=== PATIENT | male | born 1945 | race Asian ===

== ENCOUNTER 2021-06-20 10:33 | Inpatient (IN) | payer BC, MEDICAID ==
[~2021-06-20] VITALS: Ht 167.6 cm; Wt 68.0 kg
[2021-06-20] MEDS ORDERED: methylPREDNISolone SOD SUCC 125 MG/2 ML VL IV ONE (11:15)
[2021-06-20 12:00] LABS: Albumin 2.6 g/dL (3.4-5.0); Calcium 7.4 mg/dL (8.5-10.1); Potassium 3.2 mmol/L (3.5-5.1)
[2021-06-20 12:04] LABS: BUN/Creatinine Ratio 15.6; Bilirubin, Total 1.3 mg/dL (0.2-1.0); Total Protein 5.5 g/dL (6.4-8.2)
[2021-06-20 12:08] LABS: Basophils # (auto) 0 10 ^3/uL (0-0.2); Basophils % (auto) 0.2 % (0.0-2.0); Eosinophils # (auto) 0 10 ^3/uL (0-0.8); Hematocrit 34.6 % (41.0-53.0); Hemoglobin 12.6 g/dL (13.5-17.5); Lymphocytes # (auto) 0.4 10 ^3/uL (0.4-5.4); Lymphocytes % (auto) 6.7 % (10.0-50.0); Mean Corpuscular Hemoglobin 31.6 pg (28.0-32.0); Mean Corpuscular Hgb Conc. 36.4 g/dL (32.0-36.0); Mean Corpuscular Volume 86.7 fL (80.0-100.0); Monocytes # (auto) 0.2 10 ^3/uL (0-1.3); Monocytes % (auto) 3.8 % (0.0-12.0); Neutrophils # (auto) 4.8 10 ^3/uL (1.6-8.6); Neutrophils % (auto) 89.3 % (37.0-80.0); Red Blood Cells 3.98 10^6/uL (4.5-5.90); Red Cell Distribution Width 12.9 % (11.8-14.3); White Blood Cell 5.3 10^3/uL (4.4-10.8)
[2021-06-20 12:09] LABS: CRP High Sensitivity 3.62 mg/dL (< 0.3)
[2021-06-20] MEDS ORDERED: SODIUM CHL 3% 500 ML IV ONE (12:30)
[2021-06-20] MEDS ORDERED: ZINC SULFATE 220mg CAP or TAB PO ONE (12:30)
[2021-06-20] MEDS ORDERED: ASCORBIC ACID 500 MG TAB PO ONE (12:30)
[2021-06-20] MEDS ORDERED: POTASSIUM CHL 20MEQ/100ML 100 ML IV ONE (12:30)
[2021-06-20] MEDS ORDERED: CHOLECALCIFEROL (VITD3) 2,000 UNIT CAP/TAB PO ONE (12:30)
[2021-06-20] MEDS ORDERED: MORPHINE SULFATE INJECTION 2 MG/ML SYRG IV PRN (14:15)
[2021-06-20] MEDS ORDERED: NITROGLYCERIN 0.4 MG SL TAB SL PRN (14:15)
[2021-06-20 15:03] LABS: Urine Bacteria NONE SEEN /hpf (None Seen); Urine Blood Negative /uL (Negative); Urine Specific Gravity 1.003 (1.001-1.035); Urine WBC <1 /hpf (0 - 3)
[2021-06-20] MEDS ORDERED: REMDESIVIR PER PHARMACY 0 ML IV SCH (15:45)
[2021-06-20] MEDS ORDERED: LACTULOSE 20Gm/30ML SOLN PO PRN (15:45)
[2021-06-20] MEDS ORDERED: ONDANSETRON HCL 4 MG/2 ML VIAL IV PRN (15:45)
[2021-06-20] MEDS: SODIUM CHLORIDE 0.9% 1,000 ML IV SCH (15:54)
[2021-06-20] MEDS: BUDESONIDE (INHALATION) 180 MCG IH IN SCH (18:10)
[2021-06-20] MEDS: metroNIDAZOLE 500 MG TAB PO SCH (22:24)
[2021-06-20] MEDS: ENOXAPARIN SOD 40 MG/0.4 ML SYRINGE SC SCH (22:25)
[2021-06-20] MEDS: DOXYCYCLINE 100 MG TAB/CAP PO SCH (22:25)
[2021-06-21] VITALS (8 sets, daily range): BP systolic 121–143; BP diastolic 69–83
[2021-06-21] MEDS: metroNIDAZOLE 500 MG TAB PO SCH ×3 (05:32→21:50)
[2021-06-21] MEDS: SODIUM CHLORIDE 0.9% 1,000 ML IV SCH (06:37)
[2021-06-21 08:00] LABS: Basophils # (auto) 0 10 ^3/uL (0-0.2); Basophils % (auto) 0.2 % (0.0-2.0); Eosinophils # (auto) 0 10 ^3/uL (0-0.8); Hematocrit 37.2 % (41.0-53.0); Hemoglobin 13.5 g/dL (13.5-17.5); Lymphocytes # (auto) 0.4 10 ^3/uL (0.4-5.4); Mean Corpuscular Hemoglobin 31.3 pg (28.0-32.0); Mean Corpuscular Hgb Conc. 36.2 g/dL (32.0-36.0); Mean Corpuscular Volume 86.6 fL (80.0-100.0); Monocytes # (auto) 0.4 10 ^3/uL (0-1.3); Monocytes % (auto) 6.5 % (0.0-12.0); Neutrophils # (auto) 4.8 10 ^3/uL (1.6-8.6); Neutrophils % (auto) 86.3 % (37.0-80.0); Nucleated Red Blood Cells % 0.2 %; Red Cell Distribution Width 12.9 % (11.8-14.3); White Blood Cell 5.6 10^3/uL (4.4-10.8)
[2021-06-21 08:05] LABS: Potassium 3.4 mmol/L (3.5-5.1)
[2021-06-21 08:15] LABS: Albumin 2.5 g/dL (3.4-5.0); BUN/Creatinine Ratio 15.8; Bilirubin, Total 1.2 mg/dL (0.2-1.0); Calcium 7.1 mg/dL (8.5-10.1); Total Protein 5.6 g/dL (6.4-8.2)
[2021-06-21] MEDS: ZINC SULFATE 220mg CAP or TAB PO SCH (08:54)
[2021-06-21] MEDS: cefTRIAXone 1GM/50ML D5W 50 ML IV SCH (08:54)
[2021-06-21] MEDS: DOXYCYCLINE 100 MG TAB/CAP PO SCH ×2 (08:54→21:50)
[2021-06-21] MEDS: DexAMETHasone SOD PHOS 10MG/1ML VIAL INJ IV SCH (08:54)
[2021-06-21] MEDS: ASCORBIC ACID 1,000 MG TAB PO SCH (08:54)
[2021-06-21] MEDS: CHOLECALCIFEROL (VITD3) 2,000 UNIT CAP/TAB PO SCH (08:55)
[2021-06-21] MEDS: ENOXAPARIN SOD 40 MG/0.4 ML SYRINGE SC SCH ×2 (08:55→22:05)
[2021-06-21] MEDS ORDERED: POTASSIUM CHL 20 Meq TABLET PO ONE (09:00)
[2021-06-21] MEDS ORDERED: FUROSEMIDE 40 MG/4 ML VIAL IV ONE (09:00)
[2021-06-21] MEDS ORDERED: REMDESIVIR 200 MG in NS 210ml LOADING DOSE ADULT IV ONE (10:00)
[2021-06-21] MEDS: BUDESONIDE (INHALATION) 180 MCG IH IN SCH ×2 (10:16→20:24)
[2021-06-21] MEDS ORDERED: DEXTROSE (50%) 50ML SYRG IV PRN (15:15)
[2021-06-21] MEDS: ACCU-CHEK COMFORT CURVE STRIP VI SCH ×2 (16:10→22:05)
[2021-06-21] MEDS: InsuLIN REG 1unit/0.01ml Soln (100units/ml) SC SCH ×2 (16:40→21:59)
[2021-06-21] MEDS: FUROSEMIDE 20 MG/2 ML VIAL IV SCH (17:17)
[2021-06-21] MEDS: POTASSIUM CHL 10 Meq TABLET PO SCH (21:49)
[2021-06-22 05:05] VITALS: BP 137/80
[2021-06-22 06:05] LABS: Basophils # (auto) 0 10 ^3/uL (0-0.2); Basophils % (auto) 0.1 % (0.0-2.0); Eosinophils # (auto) 0 10 ^3/uL (0-0.8); Hematocrit 37.5 % (41.0-53.0); Hemoglobin 13.6 g/dL (13.5-17.5); Lymphocytes # (auto) 0.4 10 ^3/uL (0.4-5.4); Lymphocytes % (auto) 3.8 % (10.0-50.0); Mean Corpuscular Hemoglobin 31.4 pg (28.0-32.0); Mean Corpuscular Hgb Conc. 36.2 g/dL (32.0-36.0); Mean Corpuscular Volume 86.7 fL (80.0-100.0); Monocytes # (auto) 0.9 10 ^3/uL (0-1.3); Monocytes % (auto) 7.6 % (0.0-12.0); Neutrophils # (auto) 10.4 10 ^3/uL (1.6-8.6); Neutrophils % (auto) 88.5 % (37.0-80.0); Nucleated Red Blood Cells % 0.1 %; Red Blood Cells 4.32 10^6/uL (4.5-5.90); Red Cell Distribution Width 13.2 % (11.8-14.3); White Blood Cell 11.7 10^3/uL (4.4-10.8)
[2021-06-22 06:23] LABS: INR 0.99 (0.9-1.15)
[2021-06-22 06:27] LABS: Potassium 3.2 mmol/L (3.5-5.1)
[2021-06-22 06:47] LABS: Albumin 2.8 g/dL (3.4-5.0); BUN/Creatinine Ratio 24.3; CRP High Sensitivity 1.75 mg/dL (< 0.3); Calcium 6.9 mg/dL (8.5-10.1); Magnesium 2.3 mg/dL (1.6-2.6); Total Protein 6.1 g/dL (6.4-8.2)
[2021-06-22] MEDS: FUROSEMIDE 20 MG/2 ML VIAL IV SCH ×2 (06:57→17:22)
[2021-06-22] MEDS: metroNIDAZOLE 500 MG TAB PO SCH ×3 (06:57→21:58)
[2021-06-22] MEDS: ACCU-CHEK COMFORT CURVE STRIP VI SCH ×4 (06:58→21:59)
[2021-06-22] MEDS: InsuLIN REG 1unit/0.01ml Soln (100units/ml) SC SCH ×4 (06:59→21:59)
[2021-06-22] MEDS: BUDESONIDE (INHALATION) 180 MCG IH IN SCH ×2 (08:24→21:04)
[2021-06-22 09:00] VITALS: BP 133/85
[2021-06-22] MEDS: ENOXAPARIN SOD 40 MG/0.4 ML SYRINGE SC SCH ×2 (09:12→21:59)
[2021-06-22] MEDS: DexAMETHasone SOD PHOS 10MG/1ML VIAL INJ IV SCH (09:13)
[2021-06-22] MEDS: cefTRIAXone 1GM/50ML D5W 50 ML IV SCH (09:13)
[2021-06-22] MEDS: POTASSIUM CHL 10 Meq TABLET PO SCH ×2 (09:13→21:58)
[2021-06-22] MEDS: ZINC SULFATE 220mg CAP or TAB PO SCH (09:14)
[2021-06-22] MEDS: DOXYCYCLINE 100 MG TAB/CAP PO SCH (09:14)
[2021-06-22] MEDS: ASCORBIC ACID 1,000 MG TAB PO SCH (09:14)
[2021-06-22] MEDS: CHOLECALCIFEROL (VITD3) 2,000 UNIT CAP/TAB PO SCH (09:14)
[2021-06-22] MEDS ORDERED: POTASSIUM EFFERVESENT TAB 25 MEQ PO ONE (11:00)
[2021-06-22 12:30] VITALS: BP 125/81
[2021-06-22] MEDS: REMDESIVIR 100mg 100 MG in SODIUM CHL 0.9% 230 ML IV SCH (14:44)
[2021-06-22 16:40] VITALS: BP 129/79
[2021-06-22] MEDS: ALBUTEROL SULF HFA 90MCG INH 200DOSE IN PRN (21:05)
[2021-06-22 22:00] VITALS: BP 124/73
[2021-06-23 05:00] VITALS: BP 118/77
[2021-06-23] MEDS: metroNIDAZOLE 500 MG TAB PO SCH ×3 (06:10→21:05)
[2021-06-23] MEDS: FUROSEMIDE 20 MG/2 ML VIAL IV SCH ×2 (06:10→18:49)
[2021-06-23 06:34] LABS: Basophils # (auto) 0 10 ^3/uL (0-0.2); Basophils % (auto) 0.2 % (0.0-2.0); Eosinophils # (auto) 0 10 ^3/uL (0-0.8); Hematocrit 37.7 % (41.0-53.0); Hemoglobin 13.5 g/dL (13.5-17.5); Lymphocytes # (auto) 0.5 10 ^3/uL (0.4-5.4); Lymphocytes % (auto) 4.5 % (10.0-50.0); Mean Corpuscular Hemoglobin 31.5 pg (28.0-32.0); Mean Corpuscular Hgb Conc. 35.9 g/dL (32.0-36.0); Mean Corpuscular Volume 87.7 fL (80.0-100.0); Monocytes # (auto) 0.9 10 ^3/uL (0-1.3); Monocytes % (auto) 8.3 % (0.0-12.0); Neutrophils # (auto) 9.6 10 ^3/uL (1.6-8.6); Nucleated Red Blood Cells % 0.1 %; Red Blood Cells 4.29 10^6/uL (4.5-5.90); Red Cell Distribution Width 13.3 % (11.8-14.3)
[2021-06-23 06:55] LABS: Potassium 3.3 mmol/L (3.5-5.1)
[2021-06-23] MEDS: BUDESONIDE (INHALATION) 180 MCG IH IN SCH ×2 (06:56→22:57)
[2021-06-23] MEDS: ALBUTEROL SULF HFA 90MCG INH 200DOSE IN PRN ×2 (06:56→22:57)
[2021-06-23] MEDS: ACCU-CHEK COMFORT CURVE STRIP VI SCH ×4 (06:56→21:05)
[2021-06-23] MEDS: InsuLIN REG 1unit/0.01ml Soln (100units/ml) SC SCH ×4 (06:56→21:06)
[2021-06-23 07:03] LABS: Albumin 2.8 g/dL (3.4-5.0); Bilirubin, Direct 0.5 mg/dL (0-0.2); Magnesium 2.4 mg/dL (1.6-2.6)
[2021-06-23 09:00] VITALS: BP 128/83
[2021-06-23] MEDS: DexAMETHasone SOD PHOS 10MG/1ML VIAL INJ IV SCH (09:42)
[2021-06-23] MEDS: ENOXAPARIN SOD 40 MG/0.4 ML SYRINGE SC SCH ×2 (09:42→21:05)
[2021-06-23] MEDS: cefTRIAXone 1GM/50ML D5W 50 ML IV SCH (09:42)
[2021-06-23] MEDS: AZITHROMYCIN 250 MG TAB PO SCH (09:43)
[2021-06-23] MEDS: CHOLECALCIFEROL (VITD3) 2,000 UNIT CAP/TAB PO SCH (09:43)
[2021-06-23] MEDS: ASCORBIC ACID 1,000 MG TAB PO SCH (09:43)
[2021-06-23] MEDS: POTASSIUM CHL 10 Meq TABLET PO SCH ×2 (09:43→21:05)
[2021-06-23] MEDS: ZINC SULFATE 220mg CAP or TAB PO SCH (09:43)
[2021-06-23] MEDS: PANTOPRAZOLE 40 MG TAB PO SCH ×2 (11:09→21:05)
[2021-06-23 12:42] LABS: Bilirubin, Direct 0.5 mg/dL (0-0.2)
[2021-06-23 12:45] LABS: Total Protein 6.5 g/dL (6.4-8.2)
[2021-06-23 13:00] VITALS: BP 124/86
[2021-06-23] MEDS: REMDESIVIR 100mg 100 MG in SODIUM CHL 0.9% 230 ML IV SCH (15:29)
[2021-06-23 17:00] VITALS: BP 121/76
[2021-06-23 22:00] VITALS: BP 116/86
[2021-06-24] VITALS (7 sets, daily range): BP systolic 116–131; BP diastolic 76–86
[2021-06-24] MEDS: metroNIDAZOLE 500 MG TAB PO SCH (05:34)
[2021-06-24] MEDS: FUROSEMIDE 20 MG/2 ML VIAL IV SCH ×2 (05:34→17:26)
[2021-06-24] MEDS: InsuLIN REG 1unit/0.01ml Soln (100units/ml) SC SCH ×4 (06:10→21:43)
[2021-06-24] MEDS: ALBUTEROL SULF HFA 90MCG INH 200DOSE IN PRN ×2 (06:10→20:06)
[2021-06-24] MEDS: ACCU-CHEK COMFORT CURVE STRIP VI SCH ×4 (06:10→21:41)
[2021-06-24] MEDS: BUDESONIDE (INHALATION) 180 MCG IH IN SCH ×2 (06:11→18:54)
[2021-06-24 06:58] LABS: Basophils # (auto) 0 10 ^3/uL (0-0.2); Basophils % (auto) 0.1 % (0.0-2.0); Eosinophils # (auto) 0 10 ^3/uL (0-0.8); Hematocrit 39.2 % (41.0-53.0); Hemoglobin 14.1 g/dL (13.5-17.5); Lymphocytes # (auto) 0.5 10 ^3/uL (0.4-5.4); Lymphocytes % (auto) 4.9 % (10.0-50.0); Mean Corpuscular Hemoglobin 31.9 pg (28.0-32.0); Mean Corpuscular Volume 88.7 fL (80.0-100.0); Monocytes # (auto) 0.9 10 ^3/uL (0-1.3); Neutrophils # (auto) 8.6 10 ^3/uL (1.6-8.6); Nucleated Red Blood Cells % 0.1 %; Red Blood Cells 4.42 10^6/uL (4.5-5.90); Red Cell Distribution Width 13.2 % (11.8-14.3)
[2021-06-24 07:13] LABS: Potassium 3.3 mmol/L (3.5-5.1)
[2021-06-24 07:28] LABS: Albumin 2.9 g/dL (3.4-5.0); BUN/Creatinine Ratio 41.8; Calcium 7.1 mg/dL (8.5-10.1)
[2021-06-24 07:31] LABS: Bilirubin, Total 1.1 mg/dL (0.2-1.0)
[2021-06-24] MEDS: cefTRIAXone 1GM/50ML D5W 50 ML IV SCH (08:44)
[2021-06-24] MEDS: POTASSIUM CHL 10 Meq TABLET PO SCH ×2 (08:45→21:45)
[2021-06-24] MEDS: ZINC SULFATE 220mg CAP or TAB PO SCH (08:45)
[2021-06-24] MEDS: DexAMETHasone SOD PHOS 10MG/1ML VIAL INJ IV SCH (08:45)
[2021-06-24] MEDS: ASCORBIC ACID 1,000 MG TAB PO SCH (08:46)
[2021-06-24] MEDS: PANTOPRAZOLE 40 MG TAB PO SCH ×2 (08:46→21:45)
[2021-06-24] MEDS: CHOLECALCIFEROL (VITD3) 2,000 UNIT CAP/TAB PO SCH (08:46)
[2021-06-24] MEDS: ENOXAPARIN SOD 40 MG/0.4 ML SYRINGE SC SCH ×2 (08:47→21:45)
[2021-06-24] MEDS: AZITHROMYCIN 250 MG TAB PO SCH (08:47)
[2021-06-24] MEDS ORDERED: POTASSIUM EFFERVESENT TAB 25 MEQ PO ONE (12:15)
[2021-06-24] MEDS ORDERED: IOHEXOL 350 MG/ML 100ML IJ ONE (13:59)
[2021-06-24] MEDS: REMDESIVIR 100mg 100 MG in SODIUM CHL 0.9% 230 ML IV SCH (16:06)
[2021-06-25] MEDS: FUROSEMIDE 20 MG/2 ML VIAL IV SCH ×2 (05:32→17:37)
[2021-06-25 05:51] VITALS: BP 127/83
[2021-06-25 06:23] LABS: Albumin 2.9 g/dL (3.4-5.0); Calcium 7.2 mg/dL (8.5-10.1); Magnesium 3.8 mg/dL (1.6-2.6); Potassium 3.6 mmol/L (3.5-5.1)
[2021-06-25] MEDS: ACCU-CHEK COMFORT CURVE STRIP VI SCH ×4 (06:23→22:02)
[2021-06-25 06:27] LABS: BUN/Creatinine Ratio 34.5; Bilirubin, Direct 0.5 mg/dL (0-0.2); Bilirubin, Total 1.2 mg/dL (0.2-1.0); Total Protein 6.2 g/dL (6.4-8.2)
[2021-06-25] MEDS: InsuLIN REG 1unit/0.01ml Soln (100units/ml) SC SCH ×4 (06:27→22:03)
[2021-06-25] MEDS: BUDESONIDE (INHALATION) 180 MCG IH IN SCH ×2 (07:52→22:29)
[2021-06-25] MEDS: ALBUTEROL SULF HFA 90MCG INH 200DOSE IN PRN (07:53)
[2021-06-25 08:55] VITALS: BP 123/86
[2021-06-25] MEDS: POTASSIUM CHL 10 Meq TABLET PO SCH ×2 (09:18→22:07)
[2021-06-25] MEDS: cefTRIAXone 1GM/50ML D5W 50 ML IV SCH (09:18)
[2021-06-25] MEDS: ZINC SULFATE 220mg CAP or TAB PO SCH (09:18)
[2021-06-25] MEDS: DexAMETHasone SOD PHOS 10MG/1ML VIAL INJ IV SCH (09:18)
[2021-06-25] MEDS: AZITHROMYCIN 250 MG TAB PO SCH (09:19)
[2021-06-25] MEDS: PANTOPRAZOLE 40 MG TAB PO SCH ×2 (09:19→22:06)
[2021-06-25] MEDS: ENOXAPARIN SOD 40 MG/0.4 ML SYRINGE SC SCH ×2 (09:19→22:06)
[2021-06-25] MEDS: CHOLECALCIFEROL (VITD3) 2,000 UNIT CAP/TAB PO SCH (09:19)
[2021-06-25] MEDS: ASCORBIC ACID 1,000 MG TAB PO SCH (09:19)
[2021-06-25] MEDS: CLINDAMYCIN 300MG IV 50 ML IV SCH ×2 (12:32→22:07)
[2021-06-25] MEDS: DOXYCYCLINE 100MG/250ML 250 ML IV SCH (12:32)
[2021-06-25 13:00] VITALS: BP 121/76
[2021-06-25] MEDS: REMDESIVIR 100mg 100 MG in SODIUM CHL 0.9% 230 ML IV SCH (14:41)
[2021-06-25 17:00] VITALS: BP 130/81
[2021-06-25 20:00] VITALS: BP 108/73
[2021-06-25 21:43] VITALS: BP 108/73
[2021-06-26] MEDS: DOXYCYCLINE 100MG/250ML 250 ML IV SCH ×3 (00:04→23:36)
[2021-06-26 06:01] VITALS: BP 102/75
[2021-06-26] MEDS: FUROSEMIDE 20 MG/2 ML VIAL IV SCH ×3 (06:24→17:21)
[2021-06-26] MEDS: ACCU-CHEK COMFORT CURVE STRIP VI SCH ×4 (06:24→21:59)
[2021-06-26] MEDS: CLINDAMYCIN 300MG IV 50 ML IV SCH ×3 (06:24→22:00)
[2021-06-26] MEDS: InsuLIN REG 1unit/0.01ml Soln (100units/ml) SC SCH ×4 (06:25→21:50)
[2021-06-26 06:49] LABS: Albumin 2.8 g/dL (3.4-5.0); Bilirubin, Direct 0.4 mg/dL (0-0.2); Total Protein 6.1 g/dL (6.4-8.2)
[2021-06-26] MEDS: ALBUTEROL SULF HFA 90MCG INH 200DOSE IN PRN ×2 (07:07→23:52)
[2021-06-26] MEDS: BUDESONIDE (INHALATION) 180 MCG IH IN SCH ×2 (07:07→21:02)
[2021-06-26 08:43] VITALS: BP 101/68
[2021-06-26] MEDS: cefTRIAXone 1GM/50ML D5W 50 ML IV SCH (09:00)
[2021-06-26] MEDS: CHOLECALCIFEROL (VITD3) 2,000 UNIT CAP/TAB PO SCH (09:40)
[2021-06-26] MEDS: ZINC SULFATE 220mg CAP or TAB PO SCH (09:40)
[2021-06-26] MEDS: ENOXAPARIN SOD 40 MG/0.4 ML SYRINGE SC SCH (09:40)
[2021-06-26] MEDS: POTASSIUM CHL 10 Meq TABLET PO SCH ×2 (09:40→21:59)
[2021-06-26] MEDS: PANTOPRAZOLE 40 MG TAB PO SCH ×2 (09:40→21:59)
[2021-06-26] MEDS: ASCORBIC ACID 1,000 MG TAB PO SCH (09:40)
[2021-06-26] MEDS: DexAMETHasone SOD PHOS 10MG/1ML VIAL INJ IV SCH (09:40)
[2021-06-26 12:42] VITALS: BP 99/56
[2021-06-26] MEDS ORDERED: METOPROLOL SUCCINATE XL 50 MG TAB PO ONE ×2 (14:30→15:15)
[2021-06-26 14:42] LABS: BUN/Creatinine Ratio 31.9; Calcium 7.1 mg/dL (8.5-10.1); Potassium 3.5 mmol/L (3.5-5.1)
[2021-06-26 16:40] VITALS: BP 91/77
[2021-06-26] MEDS ORDERED: RIVAROXABAN 20 MG TAB PO SCH (18:00)
[2021-06-26 22:00] VITALS: BP 95/55
[2021-06-26] MEDS ORDERED: ENOXAPARIN SOD 60 MG/0.6 ML SYRINGE SC SCH (22:00)
[2021-06-27 00:13] VITALS: BP 95/55
[2021-06-27 05:00] VITALS: BP 85/64
[2021-06-27] MEDS: FUROSEMIDE 20 MG/2 ML VIAL IV SCH ×2 (06:00→17:36)
[2021-06-27] MEDS: CLINDAMYCIN 300MG IV 50 ML IV SCH ×2 (06:01→14:32)
[2021-06-27] MEDS: ACCU-CHEK COMFORT CURVE STRIP VI SCH ×4 (06:02→23:03)
[2021-06-27] MEDS: InsuLIN REG 1unit/0.01ml Soln (100units/ml) SC SCH ×4 (06:03→23:05)
[2021-06-27] MEDS ORDERED: ALBUMIN 5% 250 ML IV ONE ×2 (06:45→22:15)
[2021-06-27 08:27] VITALS: BP 102/64
[2021-06-27] MEDS: DexAMETHasone SOD PHOS 10MG/1ML VIAL INJ IV SCH (09:08)
[2021-06-27] MEDS: cefTRIAXone 1GM/50ML D5W 50 ML IV SCH (09:08)
[2021-06-27] MEDS: PANTOPRAZOLE 40 MG TAB PO SCH ×2 (09:08→21:22)
[2021-06-27] MEDS: ZINC SULFATE 220mg CAP or TAB PO SCH (09:08)
[2021-06-27] MEDS: CHOLECALCIFEROL (VITD3) 2,000 UNIT CAP/TAB PO SCH (09:09)
[2021-06-27] MEDS: ASCORBIC ACID 1,000 MG TAB PO SCH (09:09)
[2021-06-27] MEDS: POTASSIUM CHL 10 Meq TABLET PO SCH ×2 (09:09→21:22)
[2021-06-27] MEDS: ALBUTEROL SULF HFA 90MCG INH 200DOSE IN PRN ×2 (09:13→19:21)
[2021-06-27] MEDS: BUDESONIDE (INHALATION) 180 MCG IH IN SCH ×2 (09:13→19:21)
[2021-06-27] MEDS ORDERED: METOPROLOL SUCCINATE XL 50 MG TAB PO SCH (10:00)
[2021-06-27 10:59] LABS: Hepatitis B Surface Antibody Negative (Negative)
[2021-06-27 11:00] LABS: Hepatitis A Total Antibody Positive (Negative)
[2021-06-27] MEDS: DOXYCYCLINE 100MG/250ML 250 ML IV SCH (12:27)
[2021-06-27 12:33] VITALS: BP 102/67
[2021-06-27 13:18] LABS: Hepatitis C Antibody Negative (Negative)
[2021-06-27] MEDS ORDERED: IVERMECTIN 3 MG TAB PO ONE (16:35)
[2021-06-27] MEDS ORDERED: DEXTROSE (50%) 50ML SYRG IV PRN (16:45)
[2021-06-27 17:00] VITALS: BP 108/72
[2021-06-27] MEDS ORDERED: TIMO0.5S66 RIGHTEYE (20:32)
[2021-06-27] MEDS: ENOXAPARIN SOD 60 MG/0.6 ML SYRINGE SC SCH (21:22)
[2021-06-27] MEDS: DexAMETHasone SOD PHOS 4 MG/1ML SDV INJ IV SCH (21:22)
[2021-06-27 22:00] VITALS: BP 81/51
[2021-06-27] MEDS ORDERED: TOCILIZUMAB 400 MG in SODIUM CHL 0.9% 80 ML IV SCH (22:00)
[2021-06-28 05:00] VITALS: BP 98/63
[2021-06-28] MEDS: ALBUTEROL SULF HFA 90MCG INH 200DOSE IN PRN ×2 (05:42→19:17)
[2021-06-28] MEDS: BUDESONIDE (INHALATION) 180 MCG IH IN SCH ×2 (05:42→19:17)
[2021-06-28] MEDS: ACCU-CHEK COMFORT CURVE STRIP VI SCH ×4 (05:59→23:34)
[2021-06-28] MEDS: FUROSEMIDE 20 MG/2 ML VIAL IV SCH ×2 (05:59→17:37)
[2021-06-28] MEDS: InsuLIN REG 1unit/0.01ml Soln (100units/ml) SC SCH ×4 (06:03→23:34)
[2021-06-28 06:15] LABS: Basophils # (auto) 0 10 ^3/uL (0-0.2); Eosinophils # (auto) 0 10 ^3/uL (0-0.8); Hemoglobin 14.9 g/dL (13.5-17.5); Lymphocytes # (auto) 0.3 10 ^3/uL (0.4-5.4); Lymphocytes % (auto) 3.5 % (10.0-50.0); Mean Corpuscular Hemoglobin 32.3 pg (28.0-32.0); Mean Corpuscular Volume 88.6 fL (80.0-100.0); Monocytes # (auto) 0.2 10 ^3/uL (0-1.3); Neutrophils # (auto) 8.2 10 ^3/uL (1.6-8.6); Neutrophils % (auto) 94.5 % (37.0-80.0); Red Blood Cells 4.62 10^6/uL (4.5-5.90); Red Cell Distribution Width 13.1 % (11.8-14.3); White Blood Cell 8.7 10^3/uL (4.4-10.8)
[2021-06-28 06:34] LABS: Mean Corpuscular Hgb Conc. 36.5 g/dL (32.0-36.0)
[2021-06-28 06:42] LABS: Albumin 3.1 g/dL (3.4-5.0); Calcium 7.3 mg/dL (8.5-10.1); Magnesium 3.3 mg/dL (1.6-2.6); Potassium 4.2 mmol/L (3.5-5.1)
[2021-06-28 06:53] LABS: BUN/Creatinine Ratio 27.5; Bilirubin, Total 1.3 mg/dL (0.2-1.0); CRP High Sensitivity 1.28 mg/dL (< 0.3)
[2021-06-28 08:00] VITALS: BP 101/65
[2021-06-28] MEDS: DexAMETHasone SOD PHOS 4 MG/1ML SDV INJ IV SCH ×2 (08:42→23:10)
[2021-06-28] MEDS: cefTRIAXone 1GM/50ML D5W 50 ML IV SCH (08:42)
[2021-06-28] MEDS: PANTOPRAZOLE 40 MG TAB PO SCH ×2 (08:43→23:10)
[2021-06-28] MEDS: POTASSIUM CHL 10 Meq TABLET PO SCH ×2 (08:43→23:10)
[2021-06-28] MEDS: METOPROLOL SUCCINATE XL 50 MG TAB PO SCH (08:43)
[2021-06-28] MEDS: IVERMECTIN 3 MG TAB PO SCH (08:43)
[2021-06-28] MEDS: ZINC SULFATE 220mg CAP or TAB PO SCH (08:43)
[2021-06-28] MEDS: CHOLECALCIFEROL (VITD3) 2,000 UNIT CAP/TAB PO SCH (08:44)
[2021-06-28] MEDS: AZITHROMYCIN 250 MG TAB PO SCH (08:44)
[2021-06-28] MEDS: ASCORBIC ACID 1,000 MG TAB PO SCH (08:44)
[2021-06-28] MEDS: ENOXAPARIN SOD 60 MG/0.6 ML SYRINGE SC SCH ×2 (08:44→23:10)
[2021-06-28 12:00] VITALS: BP 94/60
[2021-06-28 16:00] VITALS: BP 97/64
[2021-06-28 22:00] VITALS: BP 136/81
[2021-06-29 05:00] VITALS: BP 94/63
[2021-06-29] MEDS: ACCU-CHEK COMFORT CURVE STRIP VI SCH ×3 (05:21→18:04)
[2021-06-29] MEDS: InsuLIN REG 1unit/0.01ml Soln (100units/ml) SC SCH ×3 (05:22→18:05)
[2021-06-29] MEDS: FUROSEMIDE 20 MG/2 ML VIAL IV SCH ×2 (05:23→18:04)
[2021-06-29 07:01] LABS: Potassium 4.8 mmol/L (3.5-5.1)
[2021-06-29 07:06] LABS: BUN/Creatinine Ratio 32.1; Calcium 8.1 mg/dL (8.5-10.1)
[2021-06-29] MEDS: ALBUTEROL SULF HFA 90MCG INH 200DOSE IN PRN ×3 (07:30→20:26)
[2021-06-29] MEDS: BUDESONIDE (INHALATION) 180 MCG IH IN SCH ×2 (07:30→20:26)
[2021-06-29 08:00] VITALS: BP 109/70
[2021-06-29] MEDS: cefTRIAXone 1GM/50ML D5W 50 ML IV SCH (09:40)
[2021-06-29] MEDS: DexAMETHasone SOD PHOS 4 MG/1ML SDV INJ IV SCH (09:40)
[2021-06-29] MEDS: METOPROLOL SUCCINATE XL 50 MG TAB PO SCH (09:41)
[2021-06-29] MEDS: PANTOPRAZOLE 40 MG TAB PO SCH (09:41)
[2021-06-29] MEDS: ZINC SULFATE 220mg CAP or TAB PO SCH (09:42)
[2021-06-29] MEDS: IVERMECTIN 3 MG TAB PO SCH (09:42)
[2021-06-29] MEDS: CHOLECALCIFEROL (VITD3) 2,000 UNIT CAP/TAB PO SCH (09:42)
[2021-06-29] MEDS: ENOXAPARIN SOD 60 MG/0.6 ML SYRINGE SC SCH (09:42)
[2021-06-29] MEDS: ASCORBIC ACID 1,000 MG TAB PO SCH (09:42)
[2021-06-29] MEDS: POTASSIUM CHL 10 Meq TABLET PO SCH (09:43)
[2021-06-29] MEDS: AZITHROMYCIN 250 MG TAB PO SCH (09:58)
[2021-06-29 12:00] VITALS: BP 109/70
[2021-06-29] MEDS: traMADol HCL 50 MG TAB PO PRN (13:44)
[2021-06-29] MEDS ORDERED: CLINIMIX PER PHARMACY 0 ML IV SCH (14:30)
[2021-06-29] MEDS: REMDESIVIR 100mg 100 MG in SODIUM CHL 0.9% 230 ML IV SCH (14:57)
[2021-06-29] MEDS ORDERED: DEXTROSE (50%) 50ML SYRG IV SCH (16:00)
[2021-06-29] MEDS ORDERED: ACCU-CHEK COMFORT CURVE STRIP VI SCH (18:00)
[2021-06-29] MEDS ORDERED: InsuLIN REG 1unit/0.01ml Soln (100units/ml) SC SCH (18:00)
[2021-06-29 18:56] LABS: Albumin 2.6 g/dL (3.4-5.0); Calcium 7.7 mg/dL (8.5-10.1); Potassium 4.6 mmol/L (3.5-5.1)
[2021-06-29 18:59] LABS: Bilirubin, Total 0.8 mg/dL (0.2-1.0); Total Protein 5.8 g/dL (6.4-8.2)
[2021-06-29] MEDS ORDERED: AMINO ACID INFUSION IN D10W 1,000 ML IV NR (20:00)
[2021-06-30] MEDS: ENOXAPARIN SOD 60 MG/0.6 ML SYRINGE SC SCH ×3 (01:04→22:07)
[2021-06-30] MEDS: ACCU-CHEK COMFORT CURVE STRIP VI SCH ×5 (01:04→23:49)
[2021-06-30] MEDS: PANTOPRAZOLE 40 MG TAB PO SCH ×3 (01:04→22:08)
[2021-06-30] MEDS: InsuLIN REG 1unit/0.01ml Soln (100units/ml) SC SCH ×5 (01:05→23:52)
[2021-06-30] MEDS: DexAMETHasone SOD PHOS 4 MG/1ML SDV INJ IV SCH ×3 (01:05→22:07)
[2021-06-30 02:21] VITALS: BP 104/69
[2021-06-30 05:00] VITALS: BP 99/71
[2021-06-30] MEDS: FUROSEMIDE 20 MG/2 ML VIAL IV SCH ×2 (06:26→17:53)
[2021-06-30 06:30] LABS: Basophils # (auto) 0 10 ^3/uL (0-0.2); Eosinophils # (auto) 0 10 ^3/uL (0-0.8); Hematocrit 43.5 % (41.0-53.0); Hemoglobin 15.2 g/dL (13.5-17.5); Lymphocytes # (auto) 0.3 10 ^3/uL (0.4-5.4); Lymphocytes % (auto) 2.3 % (10.0-50.0); Mean Corpuscular Hemoglobin 31.9 pg (28.0-32.0); Mean Corpuscular Hgb Conc. 34.9 g/dL (32.0-36.0); Mean Corpuscular Volume 91.4 fL (80.0-100.0); Monocytes # (auto) 0.2 10 ^3/uL (0-1.3); Monocytes % (auto) 1.6 % (0.0-12.0); Neutrophils # (auto) 12.9 10 ^3/uL (1.6-8.6); Neutrophils % (auto) 96.1 % (37.0-80.0); Red Blood Cells 4.76 10^6/uL (4.5-5.90); Red Cell Distribution Width 13.2 % (11.8-14.3); White Blood Cell 13.4 10^3/uL (4.4-10.8)
[2021-06-30 06:42] LABS: INR 1.05 (0.9-1.15); Potassium 4.3 mmol/L (3.5-5.1)
[2021-06-30 06:54] LABS: Albumin 2.8 g/dL (3.4-5.0); BUN/Creatinine Ratio 34.3; CRP High Sensitivity 0.66 mg/dL (< 0.3); Calcium 7.8 mg/dL (8.5-10.1); Magnesium 3.6 mg/dL (1.6-2.6); Phosphorus 3.8 mg/dL (2.5-4.90); Pre Albumin 27.1 mg/dL (20.0-40.0); Total Protein 6.1 g/dL (6.4-8.2)
[2021-06-30] MEDS: ALBUTEROL SULF HFA 90MCG INH 200DOSE IN PRN ×2 (08:12→21:31)
[2021-06-30] MEDS: BUDESONIDE (INHALATION) 180 MCG IH IN SCH ×2 (08:13→21:31)
[2021-06-30 09:00] VITALS: BP 111/73
[2021-06-30] MEDS: cefTRIAXone 1GM/50ML D5W 50 ML IV SCH (09:00)
[2021-06-30] MEDS: ZINC SULFATE 220mg CAP or TAB PO SCH (10:35)
[2021-06-30] MEDS: IVERMECTIN 3 MG TAB PO SCH (10:35)
[2021-06-30] MEDS: ASCORBIC ACID 1,000 MG TAB PO SCH (10:35)
[2021-06-30] MEDS: CHOLECALCIFEROL (VITD3) 2,000 UNIT CAP/TAB PO SCH (10:35)
[2021-06-30] MEDS: AZITHROMYCIN 250 MG TAB PO SCH (10:35)
[2021-06-30] MEDS: POTASSIUM CHL 10 Meq TABLET PO SCH (10:36)
[2021-06-30 13:00] VITALS: BP 105/72
[2021-06-30] MEDS: REMDESIVIR 100mg 100 MG in SODIUM CHL 0.9% 230 ML IV SCH (14:09)
[2021-06-30] MEDS ORDERED: CLINIMIX PER PHARMACY 0 ML IV SCH (15:15)
[2021-06-30 16:52] VITALS: BP 106/76
[2021-06-30] MEDS ORDERED: AMINO ACID INFUSION IN D10W 1,000 ML IV NR (20:00)
[2021-06-30 22:00] VITALS: BP 106/77
[2021-07-01 05:00] VITALS: BP 109/76
[2021-07-01] MEDS: BUDESONIDE (INHALATION) 180 MCG IH IN SCH ×2 (05:47→21:27)
[2021-07-01] MEDS: ALBUTEROL SULF HFA 90MCG INH 200DOSE IN PRN ×2 (05:47→23:01)
[2021-07-01] MEDS: ACCU-CHEK COMFORT CURVE STRIP VI SCH ×4 (05:51→23:36)
[2021-07-01] MEDS: InsuLIN REG 1unit/0.01ml Soln (100units/ml) SC SCH ×4 (05:52→23:36)
[2021-07-01] MEDS: FUROSEMIDE 20 MG/2 ML VIAL IV SCH ×2 (05:52→17:49)
[2021-07-01 06:56] LABS: Basophils # (auto) 0 10 ^3/uL (0-0.2); Basophils % (auto) 0.1 % (0.0-2.0); Eosinophils # (auto) 0 10 ^3/uL (0-0.8); Hematocrit 45.2 % (41.0-53.0); Hemoglobin 15.7 g/dL (13.5-17.5); Lymphocytes # (auto) 0.2 10 ^3/uL (0.4-5.4); Lymphocytes % (auto) 1.6 % (10.0-50.0); Mean Corpuscular Hemoglobin 31.9 pg (28.0-32.0); Mean Corpuscular Hgb Conc. 34.6 g/dL (32.0-36.0); Mean Corpuscular Volume 92.3 fL (80.0-100.0); Monocytes # (auto) 0.3 10 ^3/uL (0-1.3); Monocytes % (auto) 2.6 % (0.0-12.0); Neutrophils # (auto) 12.4 10 ^3/uL (1.6-8.6); Neutrophils % (auto) 95.7 % (37.0-80.0); White Blood Cell 12.9 10^3/uL (4.4-10.8)
[2021-07-01 07:22] LABS: Albumin 2.7 g/dL (3.4-5.0); BUN/Creatinine Ratio 30.8; Bilirubin, Total 0.9 mg/dL (0.2-1.0); Calcium 7.7 mg/dL (8.5-10.1); Magnesium 3.4 mg/dL (1.6-2.6); Phosphorus 3.6 mg/dL (2.5-4.90); Total Protein 6.1 g/dL (6.4-8.2)
[2021-07-01 08:00] VITALS: BP 109/76
[2021-07-01 09:00] VITALS: BP 118/55
[2021-07-01] MEDS: cefTRIAXone 1GM/50ML D5W 50 ML IV SCH (09:04)
[2021-07-01] MEDS: DexAMETHasone SOD PHOS 4 MG/1ML SDV INJ IV SCH ×2 (09:04→22:42)
[2021-07-01] MEDS: ZINC SULFATE 220mg CAP or TAB PO SCH (09:05)
[2021-07-01] MEDS: ASCORBIC ACID 1,000 MG TAB PO SCH (09:07)
[2021-07-01] MEDS: PANTOPRAZOLE 40 MG TAB PO SCH ×2 (09:07→22:43)
[2021-07-01] MEDS: IVERMECTIN 3 MG TAB PO SCH (09:07)
[2021-07-01] MEDS: POTASSIUM CHL 10 Meq TABLET PO SCH (09:07)
[2021-07-01] MEDS: CHOLECALCIFEROL (VITD3) 2,000 UNIT CAP/TAB PO SCH (09:07)
[2021-07-01] MEDS: ENOXAPARIN SOD 60 MG/0.6 ML SYRINGE SC SCH ×2 (09:08→22:43)
[2021-07-01] MEDS: AZITHROMYCIN 250 MG TAB PO SCH (09:08)
[2021-07-01 13:00] VITALS: BP 103/75
[2021-07-01] MEDS: REMDESIVIR 100mg 100 MG in SODIUM CHL 0.9% 230 ML IV SCH (13:34)
[2021-07-01 16:46] VITALS: BP 124/72
[2021-07-01] MEDS ORDERED: AMINO ACID INFUSION IN D10W 1,000 ML IV NR (20:00)
[2021-07-01 22:00] VITALS: BP 112/75
[2021-07-01] MEDS: INSULIN LANTUS (GLARGINE) 1 /0.01ml (100units/ml) SC SCH (23:36)
[2021-07-02] VITALS (8 sets, daily range): BP systolic 93–115; BP diastolic 63–80
[2021-07-02 06:01] LABS: Basophils # (auto) 0 10 ^3/uL (0-0.2); Basophils % (auto) 0.1 % (0.0-2.0); Eosinophils # (auto) 0 10 ^3/uL (0-0.8); Hemoglobin 16.1 g/dL (13.5-17.5); Lymphocytes # (auto) 0.3 10 ^3/uL (0.4-5.4); Mean Corpuscular Hemoglobin 32.5 pg (28.0-32.0); Mean Corpuscular Volume 92.8 fL (80.0-100.0); Monocytes # (auto) 0.4 10 ^3/uL (0-1.3); Monocytes % (auto) 2.4 % (0.0-12.0); Neutrophils # (auto) 16.4 10 ^3/uL (1.6-8.6); Neutrophils % (auto) 95.5 % (37.0-80.0); Red Blood Cells 4.96 10^6/uL (4.5-5.90); Red Cell Distribution Width 13.6 % (11.8-14.3); White Blood Cell 17.2 10^3/uL (4.4-10.8)
[2021-07-02] MEDS: ALBUTEROL SULF HFA 90MCG INH 200DOSE IN PRN ×2 (06:06→19:34)
[2021-07-02] MEDS: BUDESONIDE (INHALATION) 180 MCG IH IN SCH ×2 (06:06→18:44)
[2021-07-02] MEDS: ACCU-CHEK COMFORT CURVE STRIP VI SCH ×3 (06:16→17:32)
[2021-07-02] MEDS: InsuLIN REG 1unit/0.01ml Soln (100units/ml) SC SCH ×3 (06:16→17:36)
[2021-07-02] MEDS: FUROSEMIDE 20 MG/2 ML VIAL IV SCH ×2 (06:20→17:31)
[2021-07-02 06:22] LABS: Calcium 7.2 mg/dL (8.5-10.1)
[2021-07-02 06:28] LABS: Albumin 2.7 g/dL (3.4-5.0); BUN/Creatinine Ratio 27.7; Magnesium 3.2 mg/dL (1.6-2.6); Phosphorus 2.8 mg/dL (2.5-4.90); Total Protein 6.3 g/dL (6.4-8.2)
[2021-07-02] MEDS: DexAMETHasone SOD PHOS 4 MG/1ML SDV INJ IV SCH ×2 (10:01→21:08)
[2021-07-02] MEDS: ZINC SULFATE 220mg CAP or TAB PO SCH (10:02)
[2021-07-02] MEDS: cefTRIAXone 1GM/50ML D5W 50 ML IV SCH (10:02)
[2021-07-02] MEDS: PANTOPRAZOLE 40 MG TAB PO SCH ×2 (10:02→21:09)
[2021-07-02] MEDS: POTASSIUM CHL 10 Meq TABLET PO SCH (10:02)
[2021-07-02] MEDS: CHOLECALCIFEROL (VITD3) 2,000 UNIT CAP/TAB PO SCH (10:03)
[2021-07-02] MEDS: IVERMECTIN 3 MG TAB PO SCH (10:03)
[2021-07-02] MEDS: ASCORBIC ACID 1,000 MG TAB PO SCH (10:03)
[2021-07-02] MEDS: AZITHROMYCIN 250 MG TAB PO SCH (10:04)
[2021-07-02] MEDS: ENOXAPARIN SOD 60 MG/0.6 ML SYRINGE SC SCH ×2 (10:04→21:09)
[2021-07-02] MEDS ORDERED: CLINIMIX PER PHARMACY 0 ML IV SCH (13:00)
[2021-07-02] MEDS: REMDESIVIR 100mg 100 MG in SODIUM CHL 0.9% 230 ML IV SCH (15:03)
[2021-07-02] MEDS ORDERED: AMINO ACID INFUSION IN D10W 1,000 ML IV NR (20:00)
[2021-07-02] MEDS: INSULIN LANTUS (GLARGINE) 1 /0.01ml (100units/ml) SC SCH (21:52)
[2021-07-03] MEDS: ACCU-CHEK COMFORT CURVE STRIP VI SCH ×5 (00:01→23:56)
[2021-07-03 05:20] VITALS: BP 94/65
[2021-07-03] MEDS: BUDESONIDE (INHALATION) 180 MCG IH IN SCH ×2 (05:54→22:33)
[2021-07-03] MEDS: ALBUTEROL SULF HFA 90MCG INH 200DOSE IN PRN ×2 (05:54→22:33)
[2021-07-03] MEDS: FUROSEMIDE 20 MG/2 ML VIAL IV SCH ×2 (06:00→17:47)
[2021-07-03] MEDS: InsuLIN REG 1unit/0.01ml Soln (100units/ml) SC SCH ×5 (06:13→23:58)
[2021-07-03 06:51] LABS: Albumin 2.6 g/dL (3.4-5.0); BUN/Creatinine Ratio 30.7; Bilirubin, Total 0.7 mg/dL (0.2-1.0); Calcium 7.1 mg/dL (8.5-10.1); Magnesium 3.1 mg/dL (1.6-2.6); Phosphorus 2.6 mg/dL (2.5-4.90); Total Protein 5.8 g/dL (6.4-8.2)
[2021-07-03 08:45] VITALS: BP 105/63
[2021-07-03] MEDS: DexAMETHasone SOD PHOS 4 MG/1ML SDV INJ IV SCH ×2 (09:41→22:12)
[2021-07-03] MEDS: cefTRIAXone 1GM/50ML D5W 50 ML IV SCH (09:41)
[2021-07-03] MEDS: PANTOPRAZOLE 40 MG TAB PO SCH ×2 (09:42→22:12)
[2021-07-03] MEDS: ZINC SULFATE 220mg CAP or TAB PO SCH (09:42)
[2021-07-03] MEDS: AZITHROMYCIN 250 MG TAB PO SCH (09:42)
[2021-07-03] MEDS: POTASSIUM CHL 10 Meq TABLET PO SCH (09:42)
[2021-07-03] MEDS: ENOXAPARIN SOD 60 MG/0.6 ML SYRINGE SC SCH ×2 (09:42→22:12)
[2021-07-03] MEDS: ASCORBIC ACID 1,000 MG TAB PO SCH (09:42)
[2021-07-03] MEDS: CHOLECALCIFEROL (VITD3) 2,000 UNIT CAP/TAB PO SCH (09:42)
[2021-07-03 13:00] VITALS: BP 98/73
[2021-07-03] MEDS: REMDESIVIR 100mg 100 MG in SODIUM CHL 0.9% 230 ML IV SCH (15:28)
[2021-07-03 17:00] VITALS: BP 101/59
[2021-07-03] MEDS ORDERED: AMINO ACID INFUSION IN D10W 1,000 ML IV NR (20:00)
[2021-07-03 22:00] VITALS: BP 90/66
[2021-07-03] MEDS: INSULIN LANTUS (GLARGINE) 1 /0.01ml (100units/ml) SC SCH (22:14)
[2021-07-04 05:30] VITALS: BP 98/61
[2021-07-04] MEDS: BUDESONIDE (INHALATION) 180 MCG IH IN SCH ×2 (05:42→21:17)
[2021-07-04] MEDS: ALBUTEROL SULF HFA 90MCG INH 200DOSE IN PRN ×2 (05:42→21:18)
[2021-07-04] MEDS: FUROSEMIDE 20 MG/2 ML VIAL IV SCH ×2 (05:49→18:29)
[2021-07-04] MEDS: ACCU-CHEK COMFORT CURVE STRIP VI SCH ×4 (06:06→23:19)
[2021-07-04] MEDS: InsuLIN REG 1unit/0.01ml Soln (100units/ml) SC SCH ×4 (06:20→23:21)
[2021-07-04 06:48] LABS: Potassium 3.9 mmol/L (3.5-5.1)
[2021-07-04 06:57] LABS: Albumin 2.6 g/dL (3.4-5.0); BUN/Creatinine Ratio 33.7; Bilirubin, Total 0.7 mg/dL (0.2-1.0); CRP High Sensitivity 0.3 mg/dL (< 0.3); Magnesium 2.5 mg/dL (1.6-2.6); Total Protein 5.4 g/dL (6.4-8.2)
[2021-07-04] MEDS ORDERED: CALCIUM GLUC 1,000mg/50ml-NS 50 ML IV ONE (08:45)
[2021-07-04 09:00] VITALS: BP 90/66
[2021-07-04] MEDS: DexAMETHasone SOD PHOS 4 MG/1ML SDV INJ IV SCH ×2 (09:15→21:37)
[2021-07-04] MEDS: cefTRIAXone 1GM/50ML D5W 50 ML IV SCH ×2 (09:15→12:24)
[2021-07-04] MEDS: ZINC SULFATE 220mg CAP or TAB PO SCH (09:16)
[2021-07-04] MEDS: CHOLECALCIFEROL (VITD3) 2,000 UNIT CAP/TAB PO SCH (09:16)
[2021-07-04] MEDS: ASCORBIC ACID 1,000 MG TAB PO SCH (09:16)
[2021-07-04] MEDS: PANTOPRAZOLE 40 MG TAB PO SCH ×2 (09:16→21:37)
[2021-07-04] MEDS: POTASSIUM CHL 10 Meq TABLET PO SCH (09:16)
[2021-07-04] MEDS: ENOXAPARIN SOD 60 MG/0.6 ML SYRINGE SC SCH ×2 (09:17→21:37)
[2021-07-04] MEDS: AZITHROMYCIN 250 MG TAB PO SCH (09:17)
[2021-07-04] MEDS ORDERED: DEXTROSE (50%) 50ML SYRG IV SCH (12:00)
[2021-07-04 12:18] VITALS: BP 98/67
[2021-07-04] MEDS: MEROPENEM 1GM IVPB 100 ML IV SCH ×2 (16:16→22:00)
[2021-07-04 16:23] VITALS: BP 108/59
[2021-07-04] MEDS ORDERED: AMINO ACID INFUSION IN D10W 1,000 ML IV NR (20:00)
[2021-07-04] MEDS: INSULIN LANTUS (GLARGINE) 1 /0.01ml (100units/ml) SC SCH (21:38)
[2021-07-04 22:00] VITALS: BP 105/70
[2021-07-05 05:00] VITALS: BP 96/67
[2021-07-05] MEDS: FUROSEMIDE 20 MG/2 ML VIAL IV SCH ×2 (06:00→18:33)
[2021-07-05] MEDS: MEROPENEM 1GM IVPB 100 ML IV SCH ×3 (06:00→22:06)
[2021-07-05] MEDS: ACCU-CHEK COMFORT CURVE STRIP VI SCH ×4 (06:00→22:55)
[2021-07-05] MEDS: InsuLIN REG 1unit/0.01ml Soln (100units/ml) SC SCH ×4 (06:08→22:53)
[2021-07-05 06:12] LABS: Basophils # (auto) 0 10 ^3/uL (0-0.2); Basophils % (auto) 0.1 % (0.0-2.0); Eosinophils # (auto) 0 10 ^3/uL (0-0.8); Hematocrit 41.6 % (41.0-53.0); Hemoglobin 14.4 g/dL (13.5-17.5); Lymphocytes # (auto) 0.4 10 ^3/uL (0.4-5.4); Lymphocytes % (auto) 2.4 % (10.0-50.0); Mean Corpuscular Hemoglobin 31.5 pg (28.0-32.0); Mean Corpuscular Hgb Conc. 34.5 g/dL (32.0-36.0); Mean Corpuscular Volume 91.2 fL (80.0-100.0); Monocytes # (auto) 0.6 10 ^3/uL (0-1.3); Monocytes % (auto) 3.9 % (0.0-12.0); Neutrophils # (auto) 13.9 10 ^3/uL (1.6-8.6); Neutrophils % (auto) 93.6 % (37.0-80.0); Red Blood Cells 4.56 10^6/uL (4.5-5.90); Red Cell Distribution Width 13.4 % (11.8-14.3); White Blood Cell 14.8 10^3/uL (4.4-10.8)
[2021-07-05 06:23] LABS: INR 1.18 (0.9-1.15)
[2021-07-05 06:26] LABS: Magnesium 2.4 mg/dL (1.6-2.6); Potassium 3.7 mmol/L (3.5-5.1)
[2021-07-05 06:43] LABS: Albumin 2.6 g/dL (3.4-5.0); BUN/Creatinine Ratio 28.9; CRP High Sensitivity 0.48 mg/dL (< 0.3); Calcium 7.2 mg/dL (8.5-10.1); Phosphorus 2.6 mg/dL (2.5-4.90); Total Protein 5.3 g/dL (6.4-8.2)
[2021-07-05] MEDS: BUDESONIDE (INHALATION) 180 MCG IH IN SCH ×2 (07:45→19:44)
[2021-07-05] MEDS: ALBUTEROL SULF HFA 90MCG INH 200DOSE IN PRN ×2 (07:46→19:43)
[2021-07-05 08:35] VITALS: BP 91/58
[2021-07-05] MEDS: DexAMETHasone SOD PHOS 4 MG/1ML SDV INJ IV SCH ×2 (09:02→21:55)
[2021-07-05] MEDS: ZINC SULFATE 220mg CAP or TAB PO SCH (09:03)
[2021-07-05] MEDS: CHOLECALCIFEROL (VITD3) 2,000 UNIT CAP/TAB PO SCH (09:03)
[2021-07-05] MEDS: POTASSIUM CHL 10 Meq TABLET PO SCH (09:03)
[2021-07-05] MEDS: ASCORBIC ACID 1,000 MG TAB PO SCH (09:03)
[2021-07-05] MEDS: PANTOPRAZOLE 40 MG TAB PO SCH ×2 (09:03→21:55)
[2021-07-05] MEDS: ENOXAPARIN SOD 60 MG/0.6 ML SYRINGE SC SCH ×2 (09:04→21:55)
[2021-07-05 09:45] VITALS: BP 91/58
[2021-07-05 12:32] VITALS: BP 99/74
[2021-07-05] MEDS: IVERMECTIN 3 MG TAB PO SCH (14:53)
[2021-07-05] MEDS: traMADol HCL 50 MG TAB PO PRN ×2 (16:00→22:57)
[2021-07-05 16:53] VITALS: BP 111/73
[2021-07-05] MEDS ORDERED: AMINO ACID INFUSION IN D10W 1,000 ML IV NR (20:00)
[2021-07-05 21:30] VITALS: BP 116/74
[2021-07-05] MEDS: INSULIN LANTUS (GLARGINE) 1 /0.01ml (100units/ml) SC SCH (22:53)
[2021-07-06] VITALS (20 sets, daily range): BP systolic 82–136; BP diastolic 64–83
[2021-07-06] MEDS ORDERED: dilTIAZem 25 MG/5 ML VIAL IV ONE ×2 (02:28→02:30)
[2021-07-06] MEDS ORDERED: AMIODARONE HCL 150 MG in D5W 5% 100 ML IV ONE (03:00)
[2021-07-06] MEDS ORDERED: AMIODARONE HCL (50 MG/ ML) 3 ML VIAL IV ONE (03:13)
[2021-07-06] MEDS ORDERED: AMIODARONE 450mg/250ml AE 250 ML IV SCH (03:15)
[2021-07-06] MEDS: FUROSEMIDE 20 MG/2 ML VIAL IV SCH ×2 (05:06→18:00)
[2021-07-06] MEDS: ACCU-CHEK COMFORT CURVE STRIP VI SCH ×3 (05:06→18:00)
[2021-07-06] MEDS: InsuLIN REG 1unit/0.01ml Soln (100units/ml) SC SCH ×3 (05:10→18:48)
[2021-07-06] MEDS ORDERED: LORazepam 0.5 MG TAB PO ONE (05:45)
[2021-07-06] MEDS: MEROPENEM 1GM IVPB 100 ML IV SCH ×3 (06:18→22:00)
[2021-07-06 07:24] LABS: Basophils # (auto) 0.1 10 ^3/uL (0-0.2); Basophils % (auto) 0.5 % (0.0-2.0); Eosinophils # (auto) 0 10 ^3/uL (0-0.8); Hematocrit 44.9 % (41.0-53.0); Hemoglobin 15.7 g/dL (13.5-17.5); Lymphocytes # (auto) 0.3 10 ^3/uL (0.4-5.4); Lymphocytes % (auto) 1.6 % (10.0-50.0); Mean Corpuscular Hemoglobin 31.8 pg (28.0-32.0); Mean Corpuscular Volume 90.7 fL (80.0-100.0); Monocytes # (auto) 0.6 10 ^3/uL (0-1.3); Monocytes % (auto) 3.2 % (0.0-12.0); Neutrophils # (auto) 18.1 10 ^3/uL (1.6-8.6); Neutrophils % (auto) 94.7 % (37.0-80.0); Red Blood Cells 4.94 10^6/uL (4.5-5.90); Red Cell Distribution Width 13.5 % (11.8-14.3); White Blood Cell 19.1 10^3/uL (4.4-10.8)
[2021-07-06 07:38] LABS: Potassium 3.2 mmol/L (3.5-5.1)
[2021-07-06 07:48] LABS: Albumin 2.7 g/dL (3.4-5.0); BUN/Creatinine Ratio 28.3; Bilirubin, Total 1.2 mg/dL (0.2-1.0); Calcium 6.8 mg/dL (8.5-10.1); Magnesium 2.2 mg/dL (1.6-2.6); Phosphorus 2.2 mg/dL (2.5-4.90); Total Protein 5.6 g/dL (6.4-8.2)
[2021-07-06] MEDS ORDERED: CALCIUM GLUC 1,000mg/50ml-NS 50 ML IV ONE (08:45)
[2021-07-06] MEDS: PANTOPRAZOLE 40 MG TAB PO SCH ×2 (09:10→22:00)
[2021-07-06] MEDS: DexAMETHasone SOD PHOS 4 MG/1ML SDV INJ IV SCH ×2 (09:10→22:00)
[2021-07-06] MEDS: ASCORBIC ACID 1,000 MG TAB PO SCH (09:10)
[2021-07-06] MEDS: ENOXAPARIN SOD 60 MG/0.6 ML SYRINGE SC SCH ×2 (09:10→22:00)
[2021-07-06] MEDS: POTASSIUM CHL 20MEQ/100ML 100 ML IV SCH ×2 (09:10→11:53)
[2021-07-06] MEDS: POTASSIUM CHL 10 Meq TABLET PO SCH (09:11)
[2021-07-06] MEDS: IVERMECTIN 3 MG TAB PO SCH (09:11)
[2021-07-06] MEDS: CHOLECALCIFEROL (VITD3) 2,000 UNIT CAP/TAB PO SCH (09:11)
[2021-07-06] MEDS: ZINC SULFATE 220mg CAP or TAB PO SCH (09:11)
[2021-07-06] MEDS: METOPROLOL SUCCINATE XL 50 MG TAB PO SCH (09:13)
[2021-07-06] MEDS: AMIODARONE 450mg/250ml AE 250 ML IV SCH ×2 (09:15→23:09)
[2021-07-06] MEDS ORDERED: SODIUM PHOSPHATES 40 MEQ in D5W 5% 250 ML IV ONE (13:30)
[2021-07-06] MEDS ORDERED: LORazepam 2MG/ML-1ML VIAL IV PRN (14:45)
[2021-07-06] MEDS: BUDESONIDE (INHALATION) 180 MCG IH IN SCH ×2 (15:25→22:00)
[2021-07-06] MEDS: ALBUTEROL SULF HFA 90MCG INH 200DOSE IN PRN (15:25)
[2021-07-06] MEDS ORDERED: fentaNYL Drip 2500mCg/250mlNS 250 ML IV SCH (16:15)
[2021-07-06] MEDS ORDERED: MIDAZOLAM DRIP 50 mg/50mL 50 ML IV SCH (16:15)
[2021-07-06] MEDS ORDERED: NOREPINEPHRINE 8 MG/250ML KIT 250 ML IV SCH (16:15)
[2021-07-06] MEDS ORDERED: SUCCINYLCHOLINE CHLORIDE 20 MG/ML 10ML VIAL IV ONE (16:21)
[2021-07-06] MEDS ORDERED: ROCURONIUM 10MG/ML 10ML VIAL IV ONE (16:22)
[2021-07-06] MEDS ORDERED: ETOMIDATE (2MG/ML) 20ML VIAL IV ONE (16:22)
[2021-07-06] MEDS: NOREPINEPHRINE 8 MG/250ML KIT 250 ML IV SCH ×2 (17:00→21:00)
[2021-07-06] MEDS ORDERED: fentaNYL Drip 2500mCg/250mlNS 250 ML IV ONE ×2 (17:06→17:18)
[2021-07-06] MEDS ORDERED: MIDAZOLAM DRIP 50 mg/50mL 100 ML IV ONE (17:06)
[2021-07-06] MEDS ORDERED: NOREPINEPHRINE 8 MG/250ML KIT 250 ML IV ONE (17:09)
[2021-07-06] MEDS: fentaNYL Drip 2500mCg/250mlNS 250 ML IV SCH (17:30)
[2021-07-06] MEDS: MIDAZOLAM DRIP 50 mg/50mL 50 ML IV SCH ×2 (18:51→23:10)
[2021-07-06] MEDS ORDERED: AMINO ACID INFUSION IN D10W 1,000 ML IV NR (20:00)
[2021-07-06] MEDS: SODIUM CHLOR 0.9% PF (SALINE LOCK) 10ML VIAL/SYR IV SCH (21:39)
[2021-07-06] MEDS: INSULIN LANTUS (GLARGINE) 1 /0.01ml (100units/ml) SC SCH (22:00)
[2021-07-07] VITALS (52 sets, daily range): BP systolic 81–109; BP diastolic 52–78
[2021-07-07] MEDS: ACCU-CHEK COMFORT CURVE STRIP VI SCH ×4 (00:29→19:00)
[2021-07-07 05:10] LABS: Basophils # (auto) 0 10 ^3/uL (0-0.2); Basophils % (auto) 0.2 % (0.0-2.0); Eosinophils # (auto) 0 10 ^3/uL (0-0.8); Hematocrit 42.2 % (41.0-53.0); Hemoglobin 14.4 g/dL (13.5-17.5); Lymphocytes # (auto) 0.2 10 ^3/uL (0.4-5.4); Lymphocytes % (auto) 1.1 % (10.0-50.0); Mean Corpuscular Hemoglobin 31.3 pg (28.0-32.0); Mean Corpuscular Hgb Conc. 34.1 g/dL (32.0-36.0); Mean Corpuscular Volume 91.7 fL (80.0-100.0); Monocytes # (auto) 0.5 10 ^3/uL (0-1.3); Monocytes % (auto) 3.1 % (0.0-12.0); Neutrophils # (auto) 14.2 10 ^3/uL (1.6-8.6); Neutrophils % (auto) 95.6 % (37.0-80.0); Red Blood Cells 4.61 10^6/uL (4.5-5.90); Red Cell Distribution Width 13.6 % (11.8-14.3); White Blood Cell 14.9 10^3/uL (4.4-10.8)
[2021-07-07 05:29] LABS: Albumin 2.2 g/dL (3.4-5.0); Calcium 7.4 mg/dL (8.5-10.1); Magnesium 2.6 mg/dL (1.6-2.6)
[2021-07-07 05:37] LABS: BUN/Creatinine Ratio 34.8; Bilirubin, Total 0.9 mg/dL (0.2-1.0); CRP High Sensitivity 9.35 mg/dL (< 0.3); Phosphorus 2.2 mg/dL (2.5-4.90); Total Protein 5.6 g/dL (6.4-8.2)
[2021-07-07 05:54] LABS: INR 1.18 (0.9-1.15)
[2021-07-07] MEDS ORDERED: ALBUTEROL SULF 2.5 MG/0.5ML(0.5%) NEB SOLN ONE (05:59)
[2021-07-07] MEDS: MEROPENEM 1GM IVPB 100 ML IV SCH ×3 (06:00→22:00)
[2021-07-07] MEDS: InsuLIN REG 1unit/0.01ml Soln (100units/ml) SC SCH ×4 (06:04→19:00)
[2021-07-07] MEDS: FUROSEMIDE 20 MG/2 ML VIAL IV SCH ×2 (06:12→19:00)
[2021-07-07] MEDS: MIDAZOLAM DRIP 50 mg/50mL 50 ML IV SCH ×2 (06:53→20:30)
[2021-07-07] MEDS ORDERED: SODIUM PHOSPHATES 20 MEQ in SODIUM CHL 0.9% 100 ML IV ONE (09:30)
[2021-07-07] MEDS: BUDESONIDE (INHALATION) 180 MCG IH IN SCH (10:00)
[2021-07-07] MEDS: SODIUM CHLOR 0.9% PF (SALINE LOCK) 10ML VIAL/SYR IV SCH ×2 (10:00→22:00)
[2021-07-07] MEDS: CHOLECALCIFEROL (VITD3) 2,000 UNIT CAP/TAB PO SCH (10:00)
[2021-07-07] MEDS: METOPROLOL SUCCINATE XL 50 MG TAB PO SCH (10:00)
[2021-07-07] MEDS: ENOXAPARIN SOD 60 MG/0.6 ML SYRINGE SC SCH ×2 (10:00→22:00)
[2021-07-07] MEDS: POTASSIUM CHL 10 Meq TABLET PO SCH (10:00)
[2021-07-07] MEDS: IVERMECTIN 3 MG TAB PO SCH (10:25)
[2021-07-07] MEDS: PANTOPRAZOLE 40 MG TAB PO SCH ×2 (10:25→22:00)
[2021-07-07] MEDS: ASCORBIC ACID 1,000 MG TAB PO SCH (10:25)
[2021-07-07] MEDS: DexAMETHasone SOD PHOS 4 MG/1ML SDV INJ IV SCH ×2 (10:25→22:00)
[2021-07-07] MEDS: ZINC SULFATE 220mg CAP or TAB PO SCH (10:25)
[2021-07-07] MEDS ORDERED: THIAMINE HCL 100 MG TAB PO ONE (13:45)
[2021-07-07] MEDS: AMIODARONE 450mg/250ml AE 250 ML IV SCH (14:12)
[2021-07-07] MEDS: fentaNYL Drip 2500mCg/250mlNS 250 ML IV SCH (16:07)
[2021-07-07] MEDS ORDERED: ALBUTEROL SULF 2.5 MG/0.5ML(0.5%) NEB SOLN NEB PRN (18:15)
[2021-07-07] MEDS: BUDESONIDE (INHALATION) 0.5 MG/2 ML NEB NEB SCH (19:15)
[2021-07-07] MEDS: ALBUTEROL SULF 2.5 MG/0.5ML(0.5%) NEB SOLN NEB PRN (19:15)
[2021-07-07] MEDS ORDERED: AMINO ACID INFUSION IN D10W 1,000 ML IV NR (20:00)
[2021-07-07] MEDS: INSULIN LANTUS (GLARGINE) 1 /0.01ml (100units/ml) SC SCH (22:00)
[2021-07-08] VITALS (102 sets, daily range): BP systolic 78–119; BP diastolic 42–75
[2021-07-08] MEDS: InsuLIN REG 1unit/0.01ml Soln (100units/ml) SC SCH ×5 (00:08→23:17)
[2021-07-08] MEDS: ACCU-CHEK COMFORT CURVE STRIP VI SCH ×5 (00:08→23:18)
[2021-07-08 04:43] LABS: Basophils # (auto) 0 10 ^3/uL (0-0.2); Basophils % (auto) 0.2 % (0.0-2.0); Eosinophils # (auto) 0 10 ^3/uL (0-0.8); Hematocrit 40.4 % (41.0-53.0); Hemoglobin 14.1 g/dL (13.5-17.5); Lymphocytes # (auto) 0.2 10 ^3/uL (0.4-5.4); Lymphocytes % (auto) 1.1 % (10.0-50.0); Mean Corpuscular Hemoglobin 32.1 pg (28.0-32.0); Mean Corpuscular Hgb Conc. 34.9 g/dL (32.0-36.0); Mean Corpuscular Volume 92.1 fL (80.0-100.0); Monocytes # (auto) 0.4 10 ^3/uL (0-1.3); Monocytes % (auto) 2.9 % (0.0-12.0); Neutrophils # (auto) 14.6 10 ^3/uL (1.6-8.6); Neutrophils % (auto) 95.8 % (37.0-80.0); Red Blood Cells 4.39 10^6/uL (4.5-5.90); Red Cell Distribution Width 13.7 % (11.8-14.3); White Blood Cell 15.2 10^3/uL (4.4-10.8)
[2021-07-08 05:00] LABS: Potassium 3.8 mmol/L (3.5-5.1)
[2021-07-08] MEDS: MIDAZOLAM DRIP 50 mg/50mL 50 ML IV SCH ×2 (05:00→17:59)
[2021-07-08 05:07] LABS: Albumin 2.1 g/dL (3.4-5.0); BUN/Creatinine Ratio 46.1; Bilirubin, Total 0.5 mg/dL (0.2-1.0); Calcium 6.8 mg/dL (8.5-10.1); Magnesium 3.8 mg/dL (1.6-2.6); Phosphorus 2.9 mg/dL (2.5-4.90); Pre Albumin 13.7 mg/dL (20.0-40.0); Total Protein 5.1 g/dL (6.4-8.2)
[2021-07-08] MEDS: MEROPENEM 1GM IVPB 100 ML IV SCH ×3 (06:00→21:23)
[2021-07-08] MEDS: FUROSEMIDE 20 MG/2 ML VIAL IV SCH ×2 (06:00→18:00)
[2021-07-08] MEDS: AMIODARONE 450mg/250ml AE 250 ML IV SCH ×2 (06:15→21:15)
[2021-07-08] MEDS: fentaNYL Drip 2500mCg/250mlNS 250 ML IV SCH (07:38)
[2021-07-08] MEDS: METOPROLOL SUCCINATE XL 50 MG TAB PO SCH (10:00)
[2021-07-08] MEDS: ENOXAPARIN SOD 60 MG/0.6 ML SYRINGE SC SCH ×2 (10:00→21:22)
[2021-07-08] MEDS: ZINC SULFATE 220mg CAP or TAB PO SCH (10:24)
[2021-07-08] MEDS: THIAMINE HCL 100 MG TAB PO SCH (10:24)
[2021-07-08] MEDS: IVERMECTIN 3 MG TAB PO SCH (10:24)
[2021-07-08] MEDS: CHOLECALCIFEROL (VITD3) 2,000 UNIT CAP/TAB PO SCH (10:25)
[2021-07-08] MEDS: SODIUM CHLOR 0.9% PF (SALINE LOCK) 10ML VIAL/SYR IV SCH ×2 (10:25→21:23)
[2021-07-08] MEDS: DexAMETHasone SOD PHOS 4 MG/1ML SDV INJ IV SCH (10:25)
[2021-07-08] MEDS: ASCORBIC ACID 1,000 MG TAB PO SCH (10:25)
[2021-07-08] MEDS ORDERED: CALCIUM GLUC 1,000mg/50ml-NS 50 ML IV ONE (11:15)
[2021-07-08] MEDS: NOREPINEPHRINE 8 MG/250ML KIT 250 ML IV SCH (17:00)
[2021-07-08] MEDS ORDERED: Glucerna 1.2 Cal 1Liter BOTTLE GT SCH (17:15)
[2021-07-08] MEDS ORDERED: AMINO ACID INFUSION IN D10W 1,000 ML IV NR (20:00)
[2021-07-08] MEDS: INSULIN LANTUS (GLARGINE) 1 /0.01ml (100units/ml) SC SCH (21:20)
[2021-07-08] MEDS: BUDESONIDE (INHALATION) 0.5 MG/2 ML NEB NEB SCH (22:01)
[2021-07-09] VITALS (93 sets, daily range): BP systolic 73–120; BP diastolic 35–91
[2021-07-09] MEDS: MIDAZOLAM DRIP 50 mg/50mL 50 ML IV SCH (02:19)
[2021-07-09] MEDS: fentaNYL Drip 2500mCg/250mlNS 250 ML IV SCH (02:22)
[2021-07-09 05:01] LABS: Basophils # (auto) 0 10 ^3/uL (0-0.2); Basophils % (auto) 0.2 % (0.0-2.0); Eosinophils # (auto) 0 10 ^3/uL (0-0.8); Hematocrit 39.5 % (41.0-53.0); Hemoglobin 13.4 g/dL (13.5-17.5); Lymphocytes # (auto) 0.2 10 ^3/uL (0.4-5.4); Lymphocytes % (auto) 1.7 % (10.0-50.0); Mean Corpuscular Hemoglobin 31.2 pg (28.0-32.0); Mean Corpuscular Hgb Conc. 33.8 g/dL (32.0-36.0); Mean Corpuscular Volume 92.3 fL (80.0-100.0); Monocytes # (auto) 0.4 10 ^3/uL (0-1.3); Monocytes % (auto) 3.4 % (0.0-12.0); Neutrophils # (auto) 11.4 10 ^3/uL (1.6-8.6); Neutrophils % (auto) 94.7 % (37.0-80.0); Nucleated Red Blood Cells % 0.1 %; Red Blood Cells 4.28 10^6/uL (4.5-5.90); Red Cell Distribution Width 13.7 % (11.8-14.3); White Blood Cell 12.1 10^3/uL (4.4-10.8)
[2021-07-09 05:16] LABS: Albumin 1.9 g/dL (3.4-5.0); Calcium 7.3 mg/dL (8.5-10.1); Magnesium 3.6 mg/dL (1.6-2.6); Potassium 3.9 mmol/L (3.5-5.1)
[2021-07-09 05:19] LABS: BUN/Creatinine Ratio 57.3; Bilirubin, Total 0.4 mg/dL (0.2-1.0); Phosphorus 2.1 mg/dL (2.5-4.90); Total Protein 5.3 g/dL (6.4-8.2)
[2021-07-09] MEDS: InsuLIN REG 1unit/0.01ml Soln (100units/ml) SC SCH ×3 (06:00→18:02)
[2021-07-09] MEDS: ACCU-CHEK COMFORT CURVE STRIP VI SCH ×3 (06:00→18:03)
[2021-07-09] MEDS: FUROSEMIDE 20 MG/2 ML VIAL IV SCH ×2 (06:19→18:00)
[2021-07-09] MEDS: MEROPENEM 1GM IVPB 100 ML IV SCH ×3 (06:20→21:13)
[2021-07-09] MEDS ORDERED: PROPOFOL 0 ML IV ONE (07:14)
[2021-07-09] MEDS: ALBUTEROL SULF 2.5 MG/0.5ML(0.5%) NEB SOLN NEB PRN ×3 (07:35→22:16)
[2021-07-09] MEDS: ENOXAPARIN SOD 60 MG/0.6 ML SYRINGE SC SCH ×2 (10:00→21:13)
[2021-07-09] MEDS: METOPROLOL SUCCINATE XL 50 MG TAB PO SCH (10:00)
[2021-07-09] MEDS: CHOLECALCIFEROL (VITD3) 2,000 UNIT CAP/TAB PO SCH (10:29)
[2021-07-09] MEDS: PANTOPRAZOLE 40 MG/10 ML VIAL INJ IV SCH (10:29)
[2021-07-09] MEDS: DexAMETHasone SOD PHOS 10MG/1ML VIAL INJ IV SCH (10:29)
[2021-07-09] MEDS: POTASSIUM EFFERVESENT TAB 25 MEQ GT SCH (10:29)
[2021-07-09] MEDS: ZINC SULFATE 220mg CAP or TAB PO SCH (10:30)
[2021-07-09] MEDS: IVERMECTIN 3 MG TAB PO SCH (10:30)
[2021-07-09] MEDS: ASCORBIC ACID 1,000 MG TAB PO SCH (10:30)
[2021-07-09] MEDS: SODIUM CHLOR 0.9% PF (SALINE LOCK) 10ML VIAL/SYR IV SCH ×2 (10:31→21:13)
[2021-07-09] MEDS: THIAMINE HCL 100 MG TAB PO SCH (10:31)
[2021-07-09] MEDS: AMIODARONE 450mg/250ml AE 250 ML IV SCH (10:32)
[2021-07-09] MEDS ORDERED: TPN PER PHARMACY 0 ML IV SCH (14:00)
[2021-07-09] MEDS: BUDESONIDE (INHALATION) 0.5 MG/2 ML NEB NEB SCH ×2 (14:20→22:16)
[2021-07-09] MEDS: NOREPINEPHRINE 8 MG/250ML KIT 250 ML IV SCH (14:42)
[2021-07-09] MEDS ORDERED: CALCIUM GLUC 1,000mg/50ml-NS 50 ML IV ONE (16:30)
[2021-07-09] MEDS ORDERED: SODIUM PHOSPHATES 20 MEQ in SODIUM CHL 0.9% 100 ML IV ONE (16:30)
[2021-07-09] MEDS ORDERED: AMINO ACID INFUSION IN D10W 1,000 ML IV NR (20:00)
[2021-07-09] MEDS: INSULIN LANTUS (GLARGINE) 1 /0.01ml (100units/ml) SC SCH (22:00)
[2021-07-10] VITALS (87 sets, daily range): BP systolic 80–158; BP diastolic 48–92
[2021-07-10] MEDS: ACCU-CHEK COMFORT CURVE STRIP VI SCH ×4 (00:17→17:55)
[2021-07-10] MEDS: InsuLIN REG 1unit/0.01ml Soln (100units/ml) SC SCH ×4 (00:33→18:00)
[2021-07-10] MEDS: fentaNYL Drip 2500mCg/250mlNS 250 ML IV SCH ×3 (01:37→19:22)
[2021-07-10] MEDS: PROPOFOL 100 ML IV SCH ×3 (02:47→18:25)
[2021-07-10] MEDS: MIDAZOLAM DRIP 50 mg/50mL 50 ML IV SCH ×3 (02:49→19:22)
[2021-07-10] MEDS: AMIODARONE 450mg/250ml AE 250 ML IV SCH ×2 (03:15→18:15)
[2021-07-10 04:31] LABS: Basophils # (auto) 0 10 ^3/uL (0-0.2); Basophils % (auto) 0.1 % (0.0-2.0); Eosinophils # (auto) 0 10 ^3/uL (0-0.8); Hematocrit 39.3 % (41.0-53.0); Hemoglobin 13.5 g/dL (13.5-17.5); Lymphocytes # (auto) 0.2 10 ^3/uL (0.4-5.4); Lymphocytes % (auto) 1.1 % (10.0-50.0); Mean Corpuscular Hemoglobin 31.8 pg (28.0-32.0); Mean Corpuscular Hgb Conc. 34.3 g/dL (32.0-36.0); Mean Corpuscular Volume 92.6 fL (80.0-100.0); Monocytes # (auto) 0.6 10 ^3/uL (0-1.3); Monocytes % (auto) 3.8 % (0.0-12.0); Red Blood Cells 4.24 10^6/uL (4.5-5.90); Red Cell Distribution Width 13.6 % (11.8-14.3); White Blood Cell 14.7 10^3/uL (4.4-10.8)
[2021-07-10 04:45] LABS: Albumin 1.8 g/dL (3.4-5.0); BUN/Creatinine Ratio 46.9; Magnesium 2.9 mg/dL (1.6-2.6); Potassium 4.7 mmol/L (3.5-5.1)
[2021-07-10 04:48] LABS: Bilirubin, Total 0.6 mg/dL (0.2-1.0); Phosphorus 3.3 mg/dL (2.5-4.90); Total Protein 4.8 g/dL (6.4-8.2)
[2021-07-10] MEDS: FUROSEMIDE 20 MG/2 ML VIAL IV SCH (06:00)
[2021-07-10] MEDS: MEROPENEM 1GM IVPB 100 ML IV SCH ×3 (06:27→22:44)
[2021-07-10] MEDS: NOREPINEPHRINE 8 MG/250ML KIT 250 ML IV SCH (08:15)
[2021-07-10] MEDS: CHOLECALCIFEROL (VITD3) 2,000 UNIT CAP/TAB PO SCH (08:22)
[2021-07-10] MEDS: PANTOPRAZOLE 40 MG/10 ML VIAL INJ IV SCH (08:22)
[2021-07-10] MEDS: POTASSIUM EFFERVESENT TAB 25 MEQ GT SCH (08:22)
[2021-07-10] MEDS: DexAMETHasone SOD PHOS 10MG/1ML VIAL INJ IV SCH (08:22)
[2021-07-10] MEDS: SODIUM CHLOR 0.9% PF (SALINE LOCK) 10ML VIAL/SYR IV SCH ×2 (08:22→22:44)
[2021-07-10] MEDS: THIAMINE HCL 100 MG TAB PO SCH (08:23)
[2021-07-10] MEDS: METOPROLOL SUCCINATE XL 50 MG TAB PO SCH (08:23)
[2021-07-10] MEDS: ALBUTEROL SULF 2.5 MG/0.5ML(0.5%) NEB SOLN NEB PRN ×3 (09:18→18:32)
[2021-07-10] MEDS: BUDESONIDE (INHALATION) 0.5 MG/2 ML NEB NEB SCH ×2 (09:18→18:32)
[2021-07-10] MEDS ORDERED: TPN PER PHARMACY IV NR ×7 (20:00)
[2021-07-10] MEDS: INSULIN LANTUS (GLARGINE) 1 /0.01ml (100units/ml) SC SCH (22:45)
[2021-07-11] VITALS (69 sets, daily range): BP systolic 94–150; BP diastolic 44–77
[2021-07-11] MEDS: ACCU-CHEK COMFORT CURVE STRIP VI SCH ×5 (00:02→23:21)
[2021-07-11] MEDS: InsuLIN REG 1unit/0.01ml Soln (100units/ml) SC SCH ×5 (00:14→23:49)
[2021-07-11 04:12] LABS: Basophils # (auto) 0 10 ^3/uL (0-0.2); Basophils % (auto) 0.2 % (0.0-2.0); Eosinophils # (auto) 0 10 ^3/uL (0-0.8); Hematocrit 37.7 % (41.0-53.0); Hemoglobin 12.9 g/dL (13.5-17.5); Lymphocytes # (auto) 0.1 10 ^3/uL (0.4-5.4); Mean Corpuscular Hemoglobin 31.8 pg (28.0-32.0); Mean Corpuscular Hgb Conc. 34.2 g/dL (32.0-36.0); Monocytes # (auto) 0.3 10 ^3/uL (0-1.3); Monocytes % (auto) 2.9 % (0.0-12.0); Neutrophils % (auto) 95.9 % (37.0-80.0); Nucleated Red Blood Cells % 0.1 %; Red Blood Cells 4.05 10^6/uL (4.5-5.90); Red Cell Distribution Width 13.4 % (11.8-14.3); White Blood Cell 11.5 10^3/uL (4.4-10.8)
[2021-07-11 04:28] LABS: Albumin 1.8 g/dL (3.4-5.0); Calcium 6.8 mg/dL (8.5-10.1); Magnesium 3.6 mg/dL (1.6-2.6); Potassium 4.7 mmol/L (3.5-5.1)
[2021-07-11 04:33] LABS: BUN/Creatinine Ratio 50.6; Bilirubin, Total 0.5 mg/dL (0.2-1.0); Phosphorus 1.7 mg/dL (2.5-4.90); Total Protein 4.5 g/dL (6.4-8.2)
[2021-07-11] MEDS: MIDAZOLAM DRIP 50 mg/50mL 50 ML IV SCH ×2 (04:56→10:16)
[2021-07-11] MEDS: MEROPENEM 1GM IVPB 100 ML IV SCH ×3 (06:33→21:42)
[2021-07-11] MEDS: CHOLECALCIFEROL (VITD3) 2,000 UNIT CAP/TAB PO SCH (08:52)
[2021-07-11] MEDS: THIAMINE HCL 100 MG TAB PO SCH (08:52)
[2021-07-11] MEDS: fentaNYL Drip 2500mCg/250mlNS 250 ML IV SCH (09:00)
[2021-07-11] MEDS: ENOXAPARIN SOD 40 MG/0.4 ML SYRINGE SC SCH (09:06)
[2021-07-11] MEDS: AMIODARONE 450mg/250ml AE 250 ML IV SCH (09:15)
[2021-07-11] MEDS: METOPROLOL SUCCINATE XL 50 MG TAB PO SCH (10:00)
[2021-07-11] MEDS ORDERED: SODIUM PHOSPHATES 40 MEQ in D5W 5% 250 ML IV ONE (10:15)
[2021-07-11] MEDS: PANTOPRAZOLE 40 MG/10 ML VIAL INJ IV SCH (10:19)
[2021-07-11] MEDS: FUROSEMIDE 20 MG/2 ML VIAL IV SCH (10:20)
[2021-07-11] MEDS: DexAMETHasone SOD PHOS 10MG/1ML VIAL INJ IV SCH (10:20)
[2021-07-11] MEDS: SODIUM CHLOR 0.9% PF (SALINE LOCK) 10ML VIAL/SYR IV SCH ×2 (10:21→21:43)
[2021-07-11] MEDS: PROPOFOL 100 ML IV SCH (10:30)
[2021-07-11] MEDS: BUDESONIDE (INHALATION) 0.5 MG/2 ML NEB NEB SCH ×2 (10:43→21:46)
[2021-07-11] MEDS ORDERED: METOCLOPRAMIDE HCL 5MG/ml INJ 2ml VIAL IV ONE (16:15)
[2021-07-11] MEDS: NOREPINEPHRINE 8 MG/250ML KIT 250 ML IV SCH (17:00)
[2021-07-11] MEDS: TPN PER PHARMACY IV NR ×7 (19:50)
[2021-07-11] MEDS: ALBUTEROL SULF 2.5 MG/0.5ML(0.5%) NEB SOLN NEB PRN (21:46)
[2021-07-11] MEDS: INSULIN LANTUS (GLARGINE) 1 /0.01ml (100units/ml) SC SCH (21:46)
[2021-07-12] VITALS (88 sets, daily range): BP systolic 87–139; BP diastolic 49–71
[2021-07-12] MEDS: METOCLOPRAMIDE HCL 5MG/ml INJ 2ml VIAL IV SCH ×3 (00:26→16:48)
[2021-07-12 04:17] LABS: Basophils # (auto) 0 10 ^3/uL (0-0.2); Basophils % (auto) 0.4 % (0.0-2.0); Eosinophils # (auto) 0 10 ^3/uL (0-0.8); Hematocrit 35.1 % (41.0-53.0); Lymphocytes # (auto) 0.1 10 ^3/uL (0.4-5.4); Lymphocytes % (auto) 0.9 % (10.0-50.0); Mean Corpuscular Hemoglobin 32.1 pg (28.0-32.0); Mean Corpuscular Hgb Conc. 34.3 g/dL (32.0-36.0); Mean Corpuscular Volume 93.5 fL (80.0-100.0); Monocytes # (auto) 0.3 10 ^3/uL (0-1.3); Monocytes % (auto) 2.8 % (0.0-12.0); Neutrophils # (auto) 9.3 10 ^3/uL (1.6-8.6); Neutrophils % (auto) 95.9 % (37.0-80.0); Red Blood Cells 3.76 10^6/uL (4.5-5.90); Red Cell Distribution Width 13.5 % (11.8-14.3); White Blood Cell 9.7 10^3/uL (4.4-10.8)
[2021-07-12 04:26] LABS: Calcium 6.7 mg/dL (8.5-10.1); Potassium 4.6 mmol/L (3.5-5.1)
[2021-07-12 04:32] LABS: Albumin 1.7 g/dL (3.4-5.0); BUN/Creatinine Ratio 48.1; Bilirubin, Total 0.5 mg/dL (0.2-1.0); Magnesium 3.3 mg/dL (1.6-2.6); Phosphorus 3.6 mg/dL (2.5-4.90); Total Protein 4.3 g/dL (6.4-8.2)
[2021-07-12] MEDS: MEROPENEM 1GM IVPB 100 ML IV SCH ×3 (06:03→22:00)
[2021-07-12] MEDS: ACCU-CHEK COMFORT CURVE STRIP VI SCH ×3 (06:03→18:27)
[2021-07-12] MEDS: InsuLIN REG 1unit/0.01ml Soln (100units/ml) SC SCH ×3 (06:04→18:28)
[2021-07-12] MEDS: PROPOFOL 100 ML IV SCH ×2 (07:30→11:38)
[2021-07-12] MEDS: PANTOPRAZOLE 40 MG/10 ML VIAL INJ IV SCH (08:49)
[2021-07-12] MEDS: DexAMETHasone SOD PHOS 10MG/1ML VIAL INJ IV SCH (08:49)
[2021-07-12] MEDS: SODIUM CHLOR 0.9% PF (SALINE LOCK) 10ML VIAL/SYR IV SCH ×2 (08:49→22:00)
[2021-07-12] MEDS: CHOLECALCIFEROL (VITD3) 2,000 UNIT CAP/TAB PO SCH (08:52)
[2021-07-12] MEDS: FUROSEMIDE 20 MG/2 ML VIAL IV SCH (08:52)
[2021-07-12] MEDS: fentaNYL Drip 2500mCg/250mlNS 250 ML IV SCH (09:15)
[2021-07-12] MEDS: ENOXAPARIN SOD 40 MG/0.4 ML SYRINGE SC SCH (10:00)
[2021-07-12] MEDS: BUDESONIDE (INHALATION) 0.5 MG/2 ML NEB NEB SCH ×2 (10:25→22:16)
[2021-07-12] MEDS: MIDAZOLAM DRIP 50 mg/50mL 50 ML IV SCH ×3 (11:37→19:20)
[2021-07-12] MEDS ORDERED: LACTULOSE 20Gm/30ML SOLN PO ONE (14:30)
[2021-07-12] MEDS: NOREPINEPHRINE 8 MG/250ML KIT 250 ML IV SCH (17:00)
[2021-07-12] MEDS: LACTULOSE 20Gm/30ML SOLN PO SCH (18:28)
[2021-07-12] MEDS: TPN PER PHARMACY IV NR ×7 (19:58)
[2021-07-12] MEDS ORDERED: TPN PER PHARMACY IV NR ×9 (20:00)
[2021-07-12] MEDS: INSULIN LANTUS (GLARGINE) 1 /0.01ml (100units/ml) SC SCH (22:00)
[2021-07-12] MEDS: ALBUTEROL SULF 2.5 MG/0.5ML(0.5%) NEB SOLN NEB PRN (22:16)
[2021-07-13] VITALS (94 sets, daily range): BP systolic 85–136; BP diastolic 45–74
[2021-07-13] MEDS: METOCLOPRAMIDE HCL 5MG/ml INJ 2ml VIAL IV SCH ×3 (00:15→17:37)
[2021-07-13 04:42] LABS: Hematocrit 35.3 % (41.0-53.0); Hemoglobin 11.7 g/dL (13.5-17.5); Mean Corpuscular Hgb Conc. 33.1 g/dL (32.0-36.0); Mean Corpuscular Volume 93.8 fL (80.0-100.0); Red Blood Cells 3.77 10^6/uL (4.5-5.90); Red Cell Distribution Width 13.4 % (11.8-14.3); White Blood Cell 14.6 10^3/uL (4.4-10.8)
[2021-07-13 04:55] LABS: Basophils % (manual) 0 (0.0-2.0); Blast Cells 0; Eosinophils % (manual) 0 (0-7); Metamyelocytes % 0; Myelocytes % 0; Promyelocytes % 0; Reactive Lymphocytes 0
[2021-07-13 05:01] LABS: Albumin 1.5 g/dL (3.4-5.0); BUN/Creatinine Ratio 48.5; Magnesium 2.6 mg/dL (1.6-2.6); Potassium 4.3 mmol/L (3.5-5.1)
[2021-07-13 05:04] LABS: Bilirubin, Total 0.4 mg/dL (0.2-1.0); Phosphorus 2.1 mg/dL (2.5-4.90)
[2021-07-13] MEDS: LACTULOSE 20Gm/30ML SOLN PO SCH ×4 (06:17→17:37)
[2021-07-13] MEDS: ACCU-CHEK COMFORT CURVE STRIP VI SCH ×4 (06:18→17:11)
[2021-07-13] MEDS: InsuLIN REG 1unit/0.01ml Soln (100units/ml) SC SCH ×4 (06:18→18:29)
[2021-07-13] MEDS: MEROPENEM 1GM IVPB 100 ML IV SCH ×3 (06:45→22:00)
[2021-07-13 07:45] LABS: Band Neutrophils % (manual) 15; Lymphocytes % (manual) 1 (10.0-50.0); Monocytes % (manual) 3 (0-12)
[2021-07-13] MEDS ORDERED: SODIUM PHOSP 20MEQ(15MMOL) IN NS 100 ML IV ONE (08:15)
[2021-07-13] MEDS: fentaNYL Drip 2500mCg/250mlNS 250 ML IV SCH ×2 (09:00→20:00)
[2021-07-13] MEDS: ALBUTEROL SULF 2.5 MG/0.5ML(0.5%) NEB SOLN NEB PRN ×2 (09:01→22:31)
[2021-07-13] MEDS: INSULIN LANTUS (GLARGINE) 1 /0.01ml (100units/ml) SC SCH ×2 (10:00→22:00)
[2021-07-13] MEDS: DexAMETHasone SOD PHOS 10MG/1ML VIAL INJ IV SCH (10:37)
[2021-07-13] MEDS: SODIUM CHLOR 0.9% PF (SALINE LOCK) 10ML VIAL/SYR IV SCH ×2 (10:38→22:00)
[2021-07-13] MEDS: PANTOPRAZOLE 40 MG/10 ML VIAL INJ IV SCH (10:38)
[2021-07-13] MEDS: FUROSEMIDE 20 MG/2 ML VIAL IV SCH (10:38)
[2021-07-13] MEDS: CHOLECALCIFEROL (VITD3) 2,000 UNIT CAP/TAB PO SCH (10:38)
[2021-07-13] MEDS: NOREPINEPHRINE 8 MG/250ML KIT 250 ML IV SCH ×2 (17:00→22:00)
[2021-07-13] MEDS: MIDAZOLAM DRIP 50 mg/50mL 50 ML IV SCH ×2 (19:30→22:44)
[2021-07-13] MEDS ORDERED: TPN PER PHARMACY IV NR ×9 (20:00)
[2021-07-13] MEDS: BUDESONIDE (INHALATION) 0.5 MG/2 ML NEB NEB SCH (22:31)
[2021-07-14] VITALS (88 sets, daily range): BP systolic 77–132; BP diastolic 46–67
[2021-07-14] MEDS: METOCLOPRAMIDE HCL 5MG/ml INJ 2ml VIAL IV SCH ×3 (00:15→13:22)
[2021-07-14] MEDS ORDERED: DIGOXIN (250MCG/ML) 2 ML AMPULE IV ONE ×2 (01:00→01:45)
[2021-07-14] MEDS ORDERED: DIGOXIN (250MCG/ML) 2 ML AMPULE ONE (01:02)
[2021-07-14] MEDS: MIDAZOLAM DRIP 50 mg/50mL 50 ML IV SCH ×4 (02:00→20:00)
[2021-07-14] MEDS: NOREPINEPHRINE 8 MG/250ML KIT 250 ML IV SCH (05:00)
[2021-07-14 05:04] LABS: Albumin 1.4 g/dL (3.4-5.0); Magnesium 3.1 mg/dL (1.6-2.6); Potassium 4.6 mmol/L (3.5-5.1)
[2021-07-14 05:12] LABS: Bilirubin, Total 0.4 mg/dL (0.2-1.0); Phosphorus 5.8 mg/dL (2.5-4.90); Total Protein 3.7 g/dL (6.4-8.2)
[2021-07-14] MEDS: MEROPENEM 1GM IVPB 100 ML IV SCH ×3 (05:52→22:00)
[2021-07-14] MEDS: LACTULOSE 20Gm/30ML SOLN PO SCH ×4 (05:52→17:05)
[2021-07-14] MEDS: ACCU-CHEK COMFORT CURVE STRIP VI SCH ×4 (05:52→17:05)
[2021-07-14] MEDS: InsuLIN REG 1unit/0.01ml Soln (100units/ml) SC SCH ×4 (05:56→18:01)
[2021-07-14] MEDS: PROPOFOL 100 ML IV SCH ×4 (06:36→20:00)
[2021-07-14] MEDS: ALBUTEROL SULF 2.5 MG/0.5ML(0.5%) NEB SOLN NEB PRN ×3 (07:30→22:31)
[2021-07-14] MEDS: DexAMETHasone SOD PHOS 10MG/1ML VIAL INJ IV SCH (08:42)
[2021-07-14] MEDS: PANTOPRAZOLE 40 MG/10 ML VIAL INJ IV SCH (08:43)
[2021-07-14] MEDS: FUROSEMIDE 20 MG/2 ML VIAL IV SCH (08:43)
[2021-07-14] MEDS: CHOLECALCIFEROL (VITD3) 2,000 UNIT CAP/TAB PO SCH (08:43)
[2021-07-14] MEDS: SODIUM CHLOR 0.9% PF (SALINE LOCK) 10ML VIAL/SYR IV SCH ×2 (08:43→22:00)
[2021-07-14] MEDS: INSULIN LANTUS (GLARGINE) 1 /0.01ml (100units/ml) SC SCH ×2 (09:52→22:00)
[2021-07-14 10:57] LABS: Hematocrit 36.7 % (41.0-53.0); Hemoglobin 12.5 g/dL (13.5-17.5); Mean Corpuscular Hemoglobin 31.9 pg (28.0-32.0); Mean Corpuscular Volume 93.8 fL (80.0-100.0); Red Blood Cells 3.91 10^6/uL (4.5-5.90); Red Cell Distribution Width 13.5 % (11.8-14.3); White Blood Cell 14.6 10^3/uL (4.4-10.8)
[2021-07-14 11:00] LABS: Basophils % (manual) 0 (0.0-2.0); Blast Cells 0; Eosinophils % (manual) 0 (0-7); Metamyelocytes % 0; Promyelocytes % 0; Reactive Lymphocytes 0
[2021-07-14 11:21] LABS: Albumin 1.7 g/dL (3.4-5.0); Calcium 6.8 mg/dL (8.5-10.1); Potassium 4.4 mmol/L (3.5-5.1)
[2021-07-14 11:26] LABS: BUN/Creatinine Ratio 43.6; Bilirubin, Total 0.4 mg/dL (0.2-1.0); Total Protein 4.4 g/dL (6.4-8.2)
[2021-07-14 11:44] LABS: Band Neutrophils % (manual) 9; Lymphocytes % (manual) 2 (10.0-50.0); Monocytes % (manual) 2 (0-12); Myelocytes % 3
[2021-07-14 12:37] LABS: Magnesium 2.5 mg/dL (1.6-2.6)
[2021-07-14] MEDS ORDERED: MAGNESIUM CITRATE SOLUTION 300 ML BTL PO ONE (15:00)
[2021-07-14] MEDS: BUDESONIDE (INHALATION) 0.5 MG/2 ML NEB NEB SCH ×2 (15:18→22:30)
[2021-07-14] MEDS ORDERED: TPN PER PHARMACY IV NR ×8 (20:00)
[2021-07-14] MEDS: fentaNYL Drip 2500mCg/250mlNS 250 ML IV SCH (20:00)
[2021-07-15] VITALS (99 sets, daily range): BP systolic 93–137; BP diastolic 41–74
[2021-07-15] MEDS: METOCLOPRAMIDE HCL 5MG/ml INJ 2ml VIAL IV SCH ×3 (00:15→17:51)
[2021-07-15] MEDS: PROPOFOL 100 ML IV SCH ×3 (02:04→22:45)
[2021-07-15 05:03] LABS: Hematocrit 32.3 % (41.0-53.0); Hemoglobin 11.1 g/dL (13.5-17.5); Mean Corpuscular Hemoglobin 32.2 pg (28.0-32.0); Mean Corpuscular Hgb Conc. 34.3 g/dL (32.0-36.0); Mean Corpuscular Volume 93.9 fL (80.0-100.0); Red Blood Cells 3.44 10^6/uL (4.5-5.90); Red Cell Distribution Width 13.7 % (11.8-14.3); White Blood Cell 11.6 10^3/uL (4.4-10.8)
[2021-07-15 05:20] LABS: Basophils % (manual) 0 (0.0-2.0); Blast Cells 0; Eosinophils % (manual) 0 (0-7); Metamyelocytes % 0; Monocytes % (manual) 0 (0-12); Promyelocytes % 0; Reactive Lymphocytes 0
[2021-07-15 05:31] LABS: Potassium 4.5 mmol/L (3.5-5.1)
[2021-07-15 05:44] LABS: Albumin 1.6 g/dL (3.4-5.0); BUN/Creatinine Ratio 51.3; Bilirubin, Total 0.5 mg/dL (0.2-1.0); Calcium 6.9 mg/dL (8.5-10.1); Magnesium 3.5 mg/dL (1.6-2.6); Pre Albumin 32.7 mg/dL (20.0-40.0)
[2021-07-15] MEDS: InsuLIN REG 1unit/0.01ml Soln (100units/ml) SC SCH ×5 (06:00→23:59)
[2021-07-15] MEDS: MEROPENEM 1GM IVPB 100 ML IV SCH ×3 (06:00→22:27)
[2021-07-15] MEDS: ACCU-CHEK COMFORT CURVE STRIP VI SCH ×5 (06:00→23:58)
[2021-07-15] MEDS: LACTULOSE 20Gm/30ML SOLN PO SCH ×4 (06:00→17:50)
[2021-07-15] MEDS: BUDESONIDE (INHALATION) 0.5 MG/2 ML NEB NEB SCH ×2 (06:41→22:14)
[2021-07-15] MEDS: ALBUTEROL SULF 2.5 MG/0.5ML(0.5%) NEB SOLN NEB PRN (06:41)
[2021-07-15 07:07] LABS: Band Neutrophils % (manual) 11; Lymphocytes % (manual) 4 (10.0-50.0); Myelocytes % 2
[2021-07-15] MEDS: FUROSEMIDE 20 MG/2 ML VIAL IV SCH (09:37)
[2021-07-15] MEDS: PANTOPRAZOLE 40 MG/10 ML VIAL INJ IV SCH (09:37)
[2021-07-15] MEDS: DexAMETHasone SOD PHOS 10MG/1ML VIAL INJ IV SCH (09:38)
[2021-07-15] MEDS: SODIUM CHLOR 0.9% PF (SALINE LOCK) 10ML VIAL/SYR IV SCH ×2 (09:40→22:27)
[2021-07-15] MEDS: INSULIN LANTUS (GLARGINE) 1 /0.01ml (100units/ml) SC SCH ×2 (09:56→22:27)
[2021-07-15] MEDS: MIDAZOLAM DRIP 50 mg/50mL 50 ML IV SCH ×3 (09:57→22:44)
[2021-07-15] MEDS: CHOLECALCIFEROL (VITD3) 2,000 UNIT CAP/TAB PO SCH (10:00)
[2021-07-15] MEDS ORDERED: SODIUM PHOSP 20MEQ(15MMOL) IN NS 100 ML IV ONE (11:00)
[2021-07-15] MEDS ORDERED: MAGNESIUM CITRATE SOLUTION 300 ML BTL PO ONE ×2 (15:15→16:30)
[2021-07-15] MEDS: IPRATROPIUM BROM 0.5 MG/2.5ML INH SOL NEB SCH (18:19)
[2021-07-15] MEDS ORDERED: TPN PER PHARMACY IV NR ×8 (20:00)
[2021-07-15 21:09] LABS: Albumin 1.8 g/dL (3.4-5.0); Calcium 6.9 mg/dL (8.5-10.1); Magnesium 2.9 mg/dL (1.6-2.6); Potassium 4.3 mmol/L (3.5-5.1)
[2021-07-15 21:12] LABS: BUN/Creatinine Ratio 53.7; Bilirubin, Total 0.6 mg/dL (0.2-1.0); Total Protein 4.8 g/dL (6.4-8.2)
[2021-07-15] MEDS: fentaNYL Drip 2500mCg/250mlNS 250 ML IV SCH (22:45)
[2021-07-16] VITALS (89 sets, daily range): BP systolic 91–149; BP diastolic 49–77
[2021-07-16] MEDS: METOCLOPRAMIDE HCL 5MG/ml INJ 2ml VIAL IV SCH ×3 (00:02→16:48)
[2021-07-16] MEDS: IPRATROPIUM BROM 0.5 MG/2.5ML INH SOL NEB SCH ×4 (01:49→19:14)
[2021-07-16 04:29] LABS: Hematocrit 32.5 % (41.0-53.0); Hemoglobin 11.1 g/dL (13.5-17.5); Mean Corpuscular Hemoglobin 32.2 pg (28.0-32.0); Mean Corpuscular Hgb Conc. 34.2 g/dL (32.0-36.0); Mean Corpuscular Volume 94.2 fL (80.0-100.0); Red Blood Cells 3.45 10^6/uL (4.5-5.90); Red Cell Distribution Width 13.6 % (11.8-14.3); White Blood Cell 10.7 10^3/uL (4.4-10.8)
[2021-07-16 04:45] LABS: Basophils % (manual) 0 (0.0-2.0); Blast Cells 0; Eosinophils % (manual) 0 (0-7); Promyelocytes % 0; Reactive Lymphocytes 0
[2021-07-16 04:52] LABS: Potassium 4.3 mmol/L (3.5-5.1)
[2021-07-16 05:02] LABS: Albumin 1.8 g/dL (3.4-5.0); BUN/Creatinine Ratio 63.5; Bilirubin, Total 0.6 mg/dL (0.2-1.0); Magnesium 2.6 mg/dL (1.6-2.6); Phosphorus 3.4 mg/dL (2.5-4.90); Total Protein 4.3 g/dL (6.4-8.2)
[2021-07-16 05:11] LABS: Band Neutrophils % (manual) 4; Lymphocytes % (manual) 5 (10.0-50.0); Metamyelocytes % 1; Monocytes % (manual) 4 (0-12); Myelocytes % 1
[2021-07-16] MEDS: LACTULOSE 20Gm/30ML SOLN PO SCH ×4 (05:30→17:51)
[2021-07-16] MEDS: MEROPENEM 1GM IVPB 100 ML IV SCH ×2 (05:30→14:17)
[2021-07-16] MEDS: ACCU-CHEK COMFORT CURVE STRIP VI SCH ×3 (05:31→17:45)
[2021-07-16] MEDS: InsuLIN REG 1unit/0.01ml Soln (100units/ml) SC SCH ×3 (05:32→17:45)
[2021-07-16] MEDS: ALBUTEROL SULF 2.5 MG/0.5ML(0.5%) NEB SOLN NEB PRN ×3 (05:48→19:14)
[2021-07-16] MEDS: BUDESONIDE (INHALATION) 0.5 MG/2 ML NEB NEB SCH ×2 (05:58→19:14)
[2021-07-16] MEDS: CHOLECALCIFEROL (VITD3) 2,000 UNIT CAP/TAB PO SCH (09:03)
[2021-07-16] MEDS: DexAMETHasone SOD PHOS 10MG/1ML VIAL INJ IV SCH (09:04)
[2021-07-16] MEDS: FUROSEMIDE 20 MG/2 ML VIAL IV SCH (09:04)
[2021-07-16] MEDS: PANTOPRAZOLE 40 MG/10 ML VIAL INJ IV SCH (09:04)
[2021-07-16] MEDS: SODIUM CHLOR 0.9% PF (SALINE LOCK) 10ML VIAL/SYR IV SCH ×2 (09:05→21:58)
[2021-07-16] MEDS: fentaNYL Drip 2500mCg/250mlNS 250 ML IV SCH ×2 (09:28→23:35)
[2021-07-16] MEDS: INSULIN LANTUS (GLARGINE) 1 /0.01ml (100units/ml) SC SCH ×2 (10:30→22:07)
[2021-07-16] MEDS: MIDAZOLAM DRIP 50 mg/50mL 50 ML IV SCH ×4 (10:43→23:16)
[2021-07-16] MEDS: PROPOFOL 100 ML IV SCH ×3 (14:03→23:16)
[2021-07-16] MEDS ORDERED: BACTRIM 5MG/KG Q8HR PER RX 10 ML IV SCH (15:00)
[2021-07-16] MEDS ORDERED: SENNA 8.6 MG TAB PO ONE (15:00)
[2021-07-16] MEDS: NOREPINEPHRINE 8 MG/250ML KIT 250 ML IV SCH (17:00)
[2021-07-16] MEDS: SULFAMETH-TRIMETH 80/16MG-ML 20 ML in D5W 5% 500 ML IV SCH (17:51)
[2021-07-16] MEDS ORDERED: TPN PER PHARMACY IV NR ×9 (20:00)
[2021-07-17] VITALS (98 sets, daily range): BP systolic 92–137; BP diastolic 50–70
[2021-07-17] MEDS: ACCU-CHEK COMFORT CURVE STRIP VI SCH ×3 (00:32→12:00)
[2021-07-17] MEDS: METOCLOPRAMIDE HCL 5MG/ml INJ 2ml VIAL IV SCH ×3 (00:34→16:42)
[2021-07-17] MEDS: LACTULOSE 20Gm/30ML SOLN PO SCH ×3 (00:35→13:39)
[2021-07-17] MEDS: InsuLIN REG 1unit/0.01ml Soln (100units/ml) SC SCH ×3 (00:37→13:41)
[2021-07-17] MEDS: SULFAMETH-TRIMETH 80/16MG-ML 20 ML in D5W 5% 500 ML IV SCH ×3 (02:31→18:57)
[2021-07-17] MEDS: PROPOFOL 100 ML IV SCH ×6 (03:02→23:04)
[2021-07-17] MEDS: MIDAZOLAM DRIP 50 mg/50mL 50 ML IV SCH ×6 (04:18→23:05)
[2021-07-17 05:58] LABS: Albumin 1.7 g/dL (3.4-5.0); Calcium 6.7 mg/dL (8.5-10.1); Potassium 3.8 mmol/L (3.5-5.1)
[2021-07-17 06:04] LABS: BUN/Creatinine Ratio 48.4; Bilirubin, Total 0.6 mg/dL (0.2-1.0); Magnesium 3.4 mg/dL (1.6-2.6); Phosphorus 2.6 mg/dL (2.5-4.90); Total Protein 4.1 g/dL (6.4-8.2)
[2021-07-17 06:33] LABS: Hematocrit 31.4 % (41.0-53.0); Hemoglobin 10.5 g/dL (13.5-17.5); Mean Corpuscular Hemoglobin 31.7 pg (28.0-32.0); Mean Corpuscular Hgb Conc. 33.4 g/dL (32.0-36.0); Mean Corpuscular Volume 94.9 fL (80.0-100.0); Red Blood Cells 3.31 10^6/uL (4.5-5.90); Red Cell Distribution Width 13.6 % (11.8-14.3); White Blood Cell 12.5 10^3/uL (4.4-10.8)
[2021-07-17 06:44] LABS: Basophils % (manual) 0 (0.0-2.0); Blast Cells 0; Eosinophils % (manual) 0 (0-7); Promyelocytes % 0; Reactive Lymphocytes 0
[2021-07-17 07:52] LABS: Band Neutrophils % (manual) 3; Lymphocytes % (manual) 5 (10.0-50.0); Metamyelocytes % 1; Monocytes % (manual) 1 (0-12); Myelocytes % 4
[2021-07-17] MEDS: CHOLECALCIFEROL (VITD3) 2,000 UNIT CAP/TAB PO SCH (10:00)
[2021-07-17] MEDS: PANTOPRAZOLE 40 MG/10 ML VIAL INJ IV SCH (10:15)
[2021-07-17] MEDS: DexAMETHasone SOD PHOS 10MG/1ML VIAL INJ IV SCH (10:15)
[2021-07-17] MEDS: INSULIN LANTUS (GLARGINE) 1 /0.01ml (100units/ml) SC SCH ×2 (10:40→22:50)
[2021-07-17] MEDS: IPRATROPIUM BROM 0.5 MG/2.5ML INH SOL NEB SCH ×3 (11:00→22:00)
[2021-07-17] MEDS: BUDESONIDE (INHALATION) 0.5 MG/2 ML NEB NEB SCH ×2 (11:01→22:26)
[2021-07-17] MEDS: fentaNYL Drip 2500mCg/250mlNS 250 ML IV SCH (11:09)
[2021-07-17] MEDS: ALBUTEROL SULF 2.5 MG/0.5ML(0.5%) NEB SOLN NEB PRN ×2 (15:37→22:26)
[2021-07-17] MEDS: SODIUM CHLOR 0.9% PF (SALINE LOCK) 10ML VIAL/SYR IV SCH ×2 (16:43→22:00)
[2021-07-17] MEDS: NOREPINEPHRINE 8 MG/250ML KIT 250 ML IV SCH (20:37)
[2021-07-17] MEDS: TPN PER PHARMACY IV NR ×8 (20:53)
[2021-07-18] VITALS (54 sets, daily range): BP systolic 89–123; BP diastolic 50–66
[2021-07-18] MEDS: METOCLOPRAMIDE HCL 5MG/ml INJ 2ml VIAL IV SCH ×3 (00:15→16:15)
[2021-07-18] MEDS: fentaNYL Drip 2500mCg/250mlNS 250 ML IV SCH ×2 (01:30→12:23)
[2021-07-18] MEDS: MIDAZOLAM DRIP 50 mg/50mL 50 ML IV SCH ×3 (02:45→13:50)
[2021-07-18] MEDS: SULFAMETH-TRIMETH 80/16MG-ML 20 ML in D5W 5% 500 ML IV SCH ×3 (02:47→18:22)
[2021-07-18] MEDS: PROPOFOL 100 ML IV SCH ×3 (04:30→18:17)
[2021-07-18 04:56] LABS: Hematocrit 29.8 % (41.0-53.0); Hemoglobin 10.1 g/dL (13.5-17.5); Mean Corpuscular Hemoglobin 32.3 pg (28.0-32.0); Mean Corpuscular Hgb Conc. 33.9 g/dL (32.0-36.0); Mean Corpuscular Volume 95.2 fL (80.0-100.0); Red Blood Cells 3.13 10^6/uL (4.5-5.90); White Blood Cell 10.4 10^3/uL (4.4-10.8)
[2021-07-18 05:16] LABS: Albumin 1.6 g/dL (3.4-5.0); BUN/Creatinine Ratio 38.9; Calcium 7.1 mg/dL (8.5-10.1); Magnesium 2.7 mg/dL (1.6-2.6); Potassium 4.3 mmol/L (3.5-5.1)
[2021-07-18 05:19] LABS: Bilirubin, Total 0.6 mg/dL (0.2-1.0); Phosphorus 2.9 mg/dL (2.5-4.90); Total Protein 3.9 g/dL (6.4-8.2)
[2021-07-18 05:27] LABS: Basophils % (manual) 0 (0.0-2.0); Blast Cells 0; Eosinophils % (manual) 0 (0-7); Metamyelocytes % 0; Promyelocytes % 0; Reactive Lymphocytes 0
[2021-07-18] MEDS: LACTULOSE 20Gm/30ML SOLN PO SCH ×4 (05:51→18:00)
[2021-07-18] MEDS: ACCU-CHEK COMFORT CURVE STRIP VI SCH ×4 (05:51→18:24)
[2021-07-18] MEDS: InsuLIN REG 1unit/0.01ml Soln (100units/ml) SC SCH ×4 (06:20→18:26)
[2021-07-18 07:14] LABS: Band Neutrophils % (manual) 12; Lymphocytes % (manual) 4 (10.0-50.0); Monocytes % (manual) 4 (0-12); Myelocytes % 2
[2021-07-18] MEDS: ALBUTEROL SULF 2.5 MG/0.5ML(0.5%) NEB SOLN NEB PRN ×2 (07:18→14:48)
[2021-07-18] MEDS: IPRATROPIUM BROM 0.5 MG/2.5ML INH SOL NEB SCH ×2 (07:18→14:00)
[2021-07-18] MEDS: BUDESONIDE (INHALATION) 0.5 MG/2 ML NEB NEB SCH (11:29)
[2021-07-18] MEDS: DexAMETHasone SOD PHOS 10MG/1ML VIAL INJ IV SCH (12:02)
[2021-07-18] MEDS: PANTOPRAZOLE 40 MG/10 ML VIAL INJ IV SCH (12:02)
[2021-07-18] MEDS: CHOLECALCIFEROL (VITD3) 2,000 UNIT CAP/TAB PO SCH (12:03)
[2021-07-18] MEDS: SODIUM CHLOR 0.9% PF (SALINE LOCK) 10ML VIAL/SYR IV SCH ×2 (12:03→22:00)
[2021-07-18] MEDS: INSULIN LANTUS (GLARGINE) 1 /0.01ml (100units/ml) SC SCH ×2 (12:05→22:30)
[2021-07-18] MEDS: NOREPINEPHRINE 8 MG/250ML KIT 250 ML IV SCH (17:00)
[2021-07-18] MEDS: TPN PER PHARMACY IV NR ×22 (19:59→20:53)
[2021-07-19] VITALS (100 sets, daily range): BP systolic 99–186; BP diastolic 54–85
[2021-07-19] MEDS: METOCLOPRAMIDE HCL 5MG/ml INJ 2ml VIAL IV SCH ×4 (00:15→17:33)
[2021-07-19] MEDS: SULFAMETH-TRIMETH 80/16MG-ML 20 ML in D5W 5% 500 ML IV SCH ×3 (01:58→18:00)
[2021-07-19 05:02] LABS: Basophils # (auto) 0 10 ^3/uL (0-0.2); Eosinophils # (auto) 0 10 ^3/uL (0-0.8); Eosinophils % (auto) 0.2 % (0.0-7.0); Lymphocytes # (auto) 0.3 10 ^3/uL (0.4-5.4); Lymphocytes % (auto) 3.1 % (10.0-50.0); Mean Corpuscular Hemoglobin 32.4 pg (28.0-32.0); Mean Corpuscular Hgb Conc. 34.6 g/dL (32.0-36.0); Mean Corpuscular Volume 93.9 fL (80.0-100.0); Monocytes # (auto) 0.3 10 ^3/uL (0-1.3); Monocytes % (auto) 2.5 % (0.0-12.0); Neutrophils # (auto) 10.3 10 ^3/uL (1.6-8.6); Neutrophils % (auto) 94.2 % (37.0-80.0); Nucleated Red Blood Cells % 0.5 %; Red Blood Cells 3.09 10^6/uL (4.5-5.90); Red Cell Distribution Width 13.7 % (11.8-14.3)
[2021-07-19 05:11] LABS: Albumin 1.7 g/dL (3.4-5.0); Calcium 7.3 mg/dL (8.5-10.1); Potassium 4.1 mmol/L (3.5-5.1)
[2021-07-19 05:13] LABS: BUN/Creatinine Ratio 41.5
[2021-07-19 05:32] LABS: Bilirubin, Total 0.4 mg/dL (0.2-1.0); Magnesium 2.5 mg/dL (1.6-2.6); Phosphorus 2.6 mg/dL (2.5-4.90); Total Protein 3.9 g/dL (6.4-8.2)
[2021-07-19] MEDS: LACTULOSE 20Gm/30ML SOLN PO SCH ×4 (05:40→16:58)
[2021-07-19] MEDS: InsuLIN REG 1unit/0.01ml Soln (100units/ml) SC SCH ×4 (05:41→18:02)
[2021-07-19] MEDS: ACCU-CHEK COMFORT CURVE STRIP VI SCH ×4 (05:41→18:02)
[2021-07-19] MEDS: IPRATROPIUM BROM 0.5 MG/2.5ML INH SOL NEB SCH ×2 (06:00→14:00)
[2021-07-19] MEDS: CHOLECALCIFEROL (VITD3) 2,000 UNIT CAP/TAB PO SCH (08:12)
[2021-07-19] MEDS: INSULIN LANTUS (GLARGINE) 1 /0.01ml (100units/ml) SC SCH ×2 (10:00→22:13)
[2021-07-19] MEDS: DexAMETHasone SOD PHOS 10MG/1ML VIAL INJ IV SCH (10:19)
[2021-07-19] MEDS: SODIUM CHLOR 0.9% PF (SALINE LOCK) 10ML VIAL/SYR IV SCH ×2 (10:19→22:12)
[2021-07-19] MEDS: PANTOPRAZOLE 40 MG/10 ML VIAL INJ IV SCH (10:19)
[2021-07-19] MEDS: MIDAZOLAM DRIP 50 mg/50mL 50 ML IV SCH ×2 (12:00→23:46)
[2021-07-19] MEDS: PROPOFOL 100 ML IV SCH ×2 (12:00→22:14)
[2021-07-19] MEDS: fentaNYL Drip 2500mCg/250mlNS 250 ML IV SCH (13:30)
[2021-07-19] MEDS: ALBUTEROL SULF 2.5 MG/0.5ML(0.5%) NEB SOLN NEB PRN ×3 (14:49→22:44)
[2021-07-19] MEDS: BUDESONIDE (INHALATION) 0.5 MG/2 ML NEB NEB SCH ×3 (14:49→22:44)
[2021-07-19] MEDS ORDERED: FUROSEMIDE 20 MG/2 ML VIAL IV ONE (15:30)
[2021-07-19] MEDS ORDERED: FUROSEMIDE 20 MG/2 ML VIAL ONE (15:35)
[2021-07-19] MEDS: NOREPINEPHRINE 8 MG/250ML KIT 250 ML IV SCH (16:58)
[2021-07-19] MEDS ORDERED: TPN PER PHARMACY IV NR ×8 (20:00)
[2021-07-20] VITALS (96 sets, daily range): BP systolic 100–189; BP diastolic 50–93
[2021-07-20] MEDS: LACTULOSE 20Gm/30ML SOLN PO SCH ×5 (00:28→17:38)
[2021-07-20] MEDS: ACCU-CHEK COMFORT CURVE STRIP VI SCH ×3 (00:29→12:00)
[2021-07-20] MEDS: InsuLIN REG 1unit/0.01ml Soln (100units/ml) SC SCH ×3 (00:29→17:33)
[2021-07-20] MEDS: METOCLOPRAMIDE HCL 5MG/ml INJ 2ml VIAL IV SCH ×3 (00:30→17:37)
[2021-07-20] MEDS: PROPOFOL 100 ML IV SCH ×2 (00:56→06:35)
[2021-07-20] MEDS: SULFAMETH-TRIMETH 80/16MG-ML 20 ML in D5W 5% 500 ML IV SCH ×3 (02:07→17:39)
[2021-07-20] MEDS: MIDAZOLAM DRIP 50 mg/50mL 50 ML IV SCH ×2 (04:16→09:59)
[2021-07-20] MEDS: fentaNYL Drip 2500mCg/250mlNS 250 ML IV SCH (04:18)
[2021-07-20 04:37] LABS: Hematocrit 27.2 % (41.0-53.0); Hemoglobin 9.5 g/dL (13.5-17.5); Mean Corpuscular Hemoglobin 33.2 pg (28.0-32.0); Mean Corpuscular Hgb Conc. 35.1 g/dL (32.0-36.0); Mean Corpuscular Volume 94.7 fL (80.0-100.0); Red Blood Cells 2.87 10^6/uL (4.5-5.90); White Blood Cell 9.2 10^3/uL (4.4-10.8)
[2021-07-20 04:54] LABS: Potassium 4.8 mmol/L (3.5-5.1)
[2021-07-20 05:03] LABS: Albumin 1.5 g/dL (3.4-5.0); BUN/Creatinine Ratio 38.5; Bilirubin, Total 0.2 mg/dL (0.2-1.0); Calcium 6.7 mg/dL (8.5-10.1); Magnesium 2.9 mg/dL (1.6-2.6); Phosphorus 3.6 mg/dL (2.5-4.90); Total Protein 3.7 g/dL (6.4-8.2)
[2021-07-20 05:13] LABS: Basophils % (manual) 0 (0.0-2.0); Blast Cells 0; Eosinophils % (manual) 0 (0-7); Metamyelocytes % 0; Promyelocytes % 0; Reactive Lymphocytes 0
[2021-07-20 06:54] LABS: Band Neutrophils % (manual) 21; Lymphocytes % (manual) 1 (10.0-50.0); Monocytes % (manual) 2 (0-12); Myelocytes % 2
[2021-07-20] MEDS: DexAMETHasone SOD PHOS 10MG/1ML VIAL INJ IV SCH (09:31)
[2021-07-20] MEDS: FUROSEMIDE 20 MG/2 ML VIAL IV SCH (09:32)
[2021-07-20] MEDS: SODIUM CHLOR 0.9% PF (SALINE LOCK) 10ML VIAL/SYR IV SCH ×2 (09:33→22:00)
[2021-07-20] MEDS: CHOLECALCIFEROL (VITD3) 2,000 UNIT CAP/TAB PO SCH (09:33)
[2021-07-20] MEDS: PANTOPRAZOLE 40 MG/10 ML VIAL INJ IV SCH (09:33)
[2021-07-20] MEDS: INSULIN LANTUS (GLARGINE) 1 /0.01ml (100units/ml) SC SCH ×2 (09:35→22:00)
[2021-07-20] MEDS: ALBUTEROL SULF 2.5 MG/0.5ML(0.5%) NEB SOLN NEB PRN ×2 (10:42→18:07)
[2021-07-20] MEDS: BUDESONIDE (INHALATION) 0.5 MG/2 ML NEB NEB SCH ×2 (10:42→18:07)
[2021-07-20 12:48] LABS: Hemoglobin 9.4 g/dL (13.5-17.5)
[2021-07-20 12:50] LABS: Hematocrit 26.9 % (41.0-53.0); Mean Corpuscular Hgb Conc. 34.9 g/dL (32.0-36.0); Mean Corpuscular Volume 94.4 fL (80.0-100.0); Red Blood Cells 2.85 10^6/uL (4.5-5.90); Red Cell Distribution Width 14.1 % (11.8-14.3); White Blood Cell 7.3 10^3/uL (4.4-10.8)
[2021-07-20 12:53] LABS: Basophils % (manual) 0 (0.0-2.0); Blast Cells 0; Eosinophils % (manual) 0 (0-7); Metamyelocytes % 0; Monocytes % (manual) 0 (0-12); Promyelocytes % 0; Reactive Lymphocytes 0
[2021-07-20 13:14] LABS: Band Neutrophils % (manual) 2; Lymphocytes % (manual) 3 (10.0-50.0); Myelocytes % 2
[2021-07-20 13:18] LABS: Calcium 6.6 mg/dL (8.5-10.1); Potassium 4.3 mmol/L (3.5-5.1)
[2021-07-20] MEDS: NOREPINEPHRINE 8 MG/250ML KIT 250 ML IV SCH (17:00)
[2021-07-20] MEDS: IPRATROPIUM BROM 0.5 MG/2.5ML INH SOL NEB SCH ×2 (18:07→18:08)
[2021-07-20] MEDS ORDERED: TPN PER PHARMACY IV NR ×8 (20:00)
[2021-07-21] VITALS (94 sets, daily range): BP systolic 104–147; BP diastolic 52–79
[2021-07-21] MEDS: METOCLOPRAMIDE HCL 5MG/ml INJ 2ml VIAL IV SCH ×3 (00:15→14:11)
[2021-07-21] MEDS: SULFAMETH-TRIMETH 80/16MG-ML 20 ML in D5W 5% 500 ML IV SCH ×3 (02:38→18:33)
[2021-07-21] MEDS: PROPOFOL 100 ML IV SCH (02:53)
[2021-07-21 04:55] LABS: Basophils # (auto) 0 10 ^3/uL (0-0.2); Basophils % (auto) 0.3 % (0.0-2.0); Eosinophils # (auto) 0 10 ^3/uL (0-0.8); Hematocrit 26.9 % (41.0-53.0); Hemoglobin 9.3 g/dL (13.5-17.5); Lymphocytes # (auto) 0.1 10 ^3/uL (0.4-5.4); Lymphocytes % (auto) 1.2 % (10.0-50.0); Mean Corpuscular Hemoglobin 32.6 pg (28.0-32.0); Mean Corpuscular Hgb Conc. 34.5 g/dL (32.0-36.0); Mean Corpuscular Volume 94.3 fL (80.0-100.0); Monocytes # (auto) 0.2 10 ^3/uL (0-1.3); Monocytes % (auto) 1.8 % (0.0-12.0); Neutrophils # (auto) 9.2 10 ^3/uL (1.6-8.6); Neutrophils % (auto) 96.7 % (37.0-80.0); Nucleated Red Blood Cells % 0.4 %; Red Blood Cells 2.85 10^6/uL (4.5-5.90); Red Cell Distribution Width 13.9 % (11.8-14.3); White Blood Cell 9.6 10^3/uL (4.4-10.8)
[2021-07-21] MEDS: LACTULOSE 20Gm/30ML SOLN PO SCH ×4 (06:00→14:12)
[2021-07-21] MEDS: IPRATROPIUM BROM 0.5 MG/2.5ML INH SOL NEB SCH ×3 (06:00→22:16)
[2021-07-21] MEDS: InsuLIN REG 1unit/0.01ml Soln (100units/ml) SC SCH ×4 (06:09→18:00)
[2021-07-21] MEDS: ACCU-CHEK COMFORT CURVE STRIP VI SCH ×4 (06:09→18:08)
[2021-07-21] MEDS: MIDAZOLAM DRIP 50 mg/50mL 50 ML IV SCH (06:16)
[2021-07-21] MEDS: fentaNYL Drip 2500mCg/250mlNS 250 ML IV SCH (06:18)
[2021-07-21 07:12] LABS: Albumin 1.6 g/dL (3.4-5.0); Calcium 6.7 mg/dL (8.5-10.1); Potassium 4.4 mmol/L (3.5-5.1)
[2021-07-21 07:21] LABS: BUN/Creatinine Ratio 42.5; Bilirubin, Total 0.2 mg/dL (0.2-1.0); CRP High Sensitivity 1.18 mg/dL (< 0.3); Phosphorus 2.5 mg/dL (2.5-4.90); Total Protein 3.9 g/dL (6.4-8.2)
[2021-07-21] MEDS: ALBUTEROL SULF 2.5 MG/0.5ML(0.5%) NEB SOLN NEB PRN ×2 (09:15→14:29)
[2021-07-21] MEDS: BUDESONIDE (INHALATION) 0.5 MG/2 ML NEB NEB SCH ×2 (09:15→22:15)
[2021-07-21] MEDS ORDERED: SODIUM PHOSP 20MEQ(15MMOL) IN NS 100 ML IV ONE (09:30)
[2021-07-21] MEDS: DexAMETHasone SOD PHOS 10MG/1ML VIAL INJ IV SCH (09:33)
[2021-07-21] MEDS: CHOLECALCIFEROL (VITD3) 2,000 UNIT CAP/TAB PO SCH (09:34)
[2021-07-21] MEDS: FUROSEMIDE 20 MG/2 ML VIAL IV SCH (09:34)
[2021-07-21] MEDS: SODIUM CHLOR 0.9% PF (SALINE LOCK) 10ML VIAL/SYR IV SCH ×2 (09:34→22:25)
[2021-07-21] MEDS: PANTOPRAZOLE 40 MG/10 ML VIAL INJ IV SCH (09:34)
[2021-07-21] MEDS: INSULIN LANTUS (GLARGINE) 1 /0.01ml (100units/ml) SC SCH ×2 (09:36→22:25)
[2021-07-21] MEDS ORDERED: Jevity 1.2 Cal/Fiber 1 Liter GT SCH (12:45)
[2021-07-21] MEDS: NOREPINEPHRINE 8 MG/250ML KIT 250 ML IV SCH (17:00)
[2021-07-21] MEDS ORDERED: TPN PER PHARMACY IV NR ×9 (20:00)
[2021-07-22] VITALS (95 sets, daily range): BP systolic 106–149; BP diastolic 54–76
[2021-07-22] MEDS: ACCU-CHEK COMFORT CURVE STRIP VI SCH ×4 (00:03→17:51)
[2021-07-22] MEDS: InsuLIN REG 1unit/0.01ml Soln (100units/ml) SC SCH ×4 (00:05→17:51)
[2021-07-22] MEDS: METOCLOPRAMIDE HCL 5MG/ml INJ 2ml VIAL IV SCH ×4 (00:05→16:12)
[2021-07-22] MEDS: MIDAZOLAM DRIP 50 mg/50mL 50 ML IV SCH (01:17)
[2021-07-22] MEDS: PROPOFOL 100 ML IV SCH ×3 (01:18→22:24)
[2021-07-22] MEDS: SULFAMETH-TRIMETH 80/16MG-ML 20 ML in D5W 5% 500 ML IV SCH ×4 (01:48→18:58)
[2021-07-22] MEDS: fentaNYL Drip 2500mCg/250mlNS 250 ML IV SCH (03:59)
[2021-07-22 04:02] LABS: Basophils # (auto) 0 10 ^3/uL (0-0.2); Basophils % (auto) 0.5 % (0.0-2.0); Eosinophils # (auto) 0.1 10 ^3/uL (0-0.8); Eosinophils % (auto) 0.9 % (0.0-7.0); Hematocrit 27.9 % (41.0-53.0); Hemoglobin 9.6 g/dL (13.5-17.5); Lymphocytes # (auto) 0.2 10 ^3/uL (0.4-5.4); Lymphocytes % (auto) 1.9 % (10.0-50.0); Mean Corpuscular Hemoglobin 32.6 pg (28.0-32.0); Mean Corpuscular Hgb Conc. 34.3 g/dL (32.0-36.0); Mean Corpuscular Volume 95.1 fL (80.0-100.0); Monocytes # (auto) 0.1 10 ^3/uL (0-1.3); Monocytes % (auto) 1.7 % (0.0-12.0); Neutrophils # (auto) 7.9 10 ^3/uL (1.6-8.6); Nucleated Red Blood Cells % 0.4 %; Red Blood Cells 2.93 10^6/uL (4.5-5.90); Red Cell Distribution Width 14.1 % (11.8-14.3); White Blood Cell 8.3 10^3/uL (4.4-10.8)
[2021-07-22 04:29] LABS: Albumin 1.7 g/dL (3.4-5.0); Calcium 6.8 mg/dL (8.5-10.1); Potassium 4.8 mmol/L (3.5-5.1)
[2021-07-22 04:34] LABS: BUN/Creatinine Ratio 45.1; Bilirubin, Total 0.2 mg/dL (0.2-1.0); Total Protein 4.1 g/dL (6.4-8.2)
[2021-07-22 04:53] LABS: Pre Albumin 43.4 mg/dL (20.0-40.0)
[2021-07-22] MEDS: LACTULOSE 20Gm/30ML SOLN PO SCH ×4 (05:26→17:49)
[2021-07-22] MEDS: ALBUTEROL SULF 2.5 MG/0.5ML(0.5%) NEB SOLN NEB PRN ×3 (06:19→22:22)
[2021-07-22] MEDS: IPRATROPIUM BROM 0.5 MG/2.5ML INH SOL NEB SCH ×3 (06:19→22:22)
[2021-07-22] MEDS: BUDESONIDE (INHALATION) 0.5 MG/2 ML NEB NEB SCH ×2 (06:19→22:22)
[2021-07-22] MEDS: SODIUM CHLOR 0.9% PF (SALINE LOCK) 10ML VIAL/SYR IV SCH ×3 (10:00→21:53)
[2021-07-22] MEDS: FUROSEMIDE 20 MG/2 ML VIAL IV SCH ×2 (10:00→12:59)
[2021-07-22] MEDS: DexAMETHasone SOD PHOS 4 MG/1ML SDV INJ IV SCH ×2 (10:00→12:57)
[2021-07-22] MEDS: PANTOPRAZOLE 40 MG/10 ML VIAL INJ IV SCH ×2 (10:00→13:00)
[2021-07-22] MEDS: CHOLECALCIFEROL (VITD3) 2,000 UNIT CAP/TAB PO SCH (13:01)
[2021-07-22] MEDS: INSULIN LANTUS (GLARGINE) 1 /0.01ml (100units/ml) SC SCH ×2 (13:03→21:53)
[2021-07-22] MEDS: NOREPINEPHRINE 8 MG/250ML KIT 250 ML IV SCH (17:00)
[2021-07-22] MEDS ORDERED: TPN PER PHARMACY IV NR ×8 (20:00)
[2021-07-23] VITALS (88 sets, daily range): BP systolic 90–171; BP diastolic 49–82
[2021-07-23] MEDS: ACCU-CHEK COMFORT CURVE STRIP VI SCH ×4 (00:02→18:30)
[2021-07-23] MEDS: InsuLIN REG 1unit/0.01ml Soln (100units/ml) SC SCH ×4 (00:06→18:00)
[2021-07-23] MEDS: METOCLOPRAMIDE HCL 5MG/ml INJ 2ml VIAL IV SCH ×4 (00:08→18:24)
[2021-07-23] MEDS: SULFAMETH-TRIMETH 80/16MG-ML 20 ML in D5W 5% 500 ML IV SCH ×4 (02:16→18:24)
[2021-07-23] MEDS: MIDAZOLAM DRIP 50 mg/50mL 50 ML IV SCH (04:22)
[2021-07-23] MEDS: PROPOFOL 100 ML IV SCH (04:22)
[2021-07-23] MEDS: fentaNYL Drip 2500mCg/250mlNS 250 ML IV SCH (04:23)
[2021-07-23 04:42] LABS: Basophils # (auto) 0 10 ^3/uL (0-0.2); Basophils % (auto) 0.1 % (0.0-2.0); Eosinophils # (auto) 0 10 ^3/uL (0-0.8); Hematocrit 26.2 % (41.0-53.0); Hemoglobin 9.2 g/dL (13.5-17.5); Lymphocytes # (auto) 0.1 10 ^3/uL (0.4-5.4); Lymphocytes % (auto) 1.8 % (10.0-50.0); Mean Corpuscular Hemoglobin 32.8 pg (28.0-32.0); Mean Corpuscular Hgb Conc. 35.2 g/dL (32.0-36.0); Mean Corpuscular Volume 93.2 fL (80.0-100.0); Monocytes # (auto) 0.1 10 ^3/uL (0-1.3); Monocytes % (auto) 2.1 % (0.0-12.0); Neutrophils # (auto) 5.6 10 ^3/uL (1.6-8.6); Nucleated Red Blood Cells % 0.5 %; Red Blood Cells 2.81 10^6/uL (4.5-5.90); Red Cell Distribution Width 14.1 % (11.8-14.3); White Blood Cell 5.8 10^3/uL (4.4-10.8)
[2021-07-23 04:50] LABS: Albumin 1.7 g/dL (3.4-5.0); Calcium 6.9 mg/dL (8.5-10.1); Magnesium 3.3 mg/dL (1.6-2.6); Potassium 4.7 mmol/L (3.5-5.1)
[2021-07-23 04:53] LABS: BUN/Creatinine Ratio 45.7; Bilirubin, Total 0.3 mg/dL (0.2-1.0); Phosphorus 4.4 mg/dL (2.5-4.90); Total Protein 4.1 g/dL (6.4-8.2)
[2021-07-23] MEDS: LACTULOSE 20Gm/30ML SOLN PO SCH ×4 (05:55→18:00)
[2021-07-23] MEDS: DexAMETHasone SOD PHOS 4 MG/1ML SDV INJ IV SCH ×2 (10:00→12:39)
[2021-07-23] MEDS: PANTOPRAZOLE 40 MG/10 ML VIAL INJ IV SCH ×2 (10:00→12:40)
[2021-07-23] MEDS: ALBUTEROL SULF 2.5 MG/0.5ML(0.5%) NEB SOLN NEB PRN ×2 (11:20→15:27)
[2021-07-23] MEDS: IPRATROPIUM BROM 0.5 MG/2.5ML INH SOL NEB SCH ×3 (11:20→22:15)
[2021-07-23] MEDS: BUDESONIDE (INHALATION) 0.5 MG/2 ML NEB NEB SCH ×2 (11:20→22:15)
[2021-07-23] MEDS: FUROSEMIDE 20 MG/2 ML VIAL IV SCH (12:40)
[2021-07-23] MEDS: CHOLECALCIFEROL (VITD3) 2,000 UNIT CAP/TAB PO SCH (12:41)
[2021-07-23] MEDS: SODIUM CHLOR 0.9% PF (SALINE LOCK) 10ML VIAL/SYR IV SCH ×2 (12:41→21:19)
[2021-07-23] MEDS: INSULIN LANTUS (GLARGINE) 1 /0.01ml (100units/ml) SC SCH ×2 (12:43→21:18)
[2021-07-23] MEDS: NOREPINEPHRINE 8 MG/250ML KIT 250 ML IV SCH (17:00)
[2021-07-24] VITALS (100 sets, daily range): BP systolic 81–137; BP diastolic 45–75
[2021-07-24] MEDS: ACCU-CHEK COMFORT CURVE STRIP VI SCH ×5 (00:30→23:22)
[2021-07-24] MEDS: METOCLOPRAMIDE HCL 5MG/ml INJ 2ml VIAL IV SCH ×2 (00:33→08:15)
[2021-07-24] MEDS: PROPOFOL 100 ML IV SCH ×3 (00:58→21:15)
[2021-07-24] MEDS: SULFAMETH-TRIMETH 80/16MG-ML 20 ML in D5W 5% 500 ML IV SCH ×3 (02:00→18:00)
[2021-07-24] MEDS: fentaNYL Drip 2500mCg/250mlNS 250 ML IV SCH ×2 (03:52→16:00)
[2021-07-24] MEDS: InsuLIN REG 1unit/0.01ml Soln (100units/ml) SC SCH ×5 (05:12→23:22)
[2021-07-24] MEDS: LACTULOSE 20Gm/30ML SOLN PO SCH ×3 (05:12→11:31)
[2021-07-24 06:11] LABS: Basophils # (auto) 0 10 ^3/uL (0-0.2); Eosinophils # (auto) 0 10 ^3/uL (0-0.8); Hemoglobin 10.8 g/dL (13.5-17.5); Lymphocytes # (auto) 0.3 10 ^3/uL (0.4-5.4); Mean Corpuscular Hemoglobin 34.2 pg (28.0-32.0); Monocytes # (auto) 0.1 10 ^3/uL (0-1.3)
[2021-07-24 06:13] LABS: Basophils % (auto) 0.2 % (0.0-2.0); Eosinophils % (auto) 0.4 % (0.0-7.0); Hematocrit 29.6 % (41.0-53.0); Lymphocytes % (auto) 4.2 % (10.0-50.0); Mean Corpuscular Volume 93.7 fL (80.0-100.0); Monocytes % (auto) 1.3 % (0.0-12.0); Neutrophils # (auto) 6.6 10 ^3/uL (1.6-8.6); Neutrophils % (auto) 93.9 % (37.0-80.0); Nucleated Red Blood Cells % 0.6 %; Red Blood Cells 3.16 10^6/uL (4.5-5.90); Red Cell Distribution Width 14.5 % (11.8-14.3)
[2021-07-24 06:15] LABS: Mean Corpuscular Hgb Conc. 36.5 g/dL (32.0-36.0)
[2021-07-24 06:19] LABS: BUN/Creatinine Ratio 44.9; Calcium 6.4 mg/dL (8.5-10.1); Potassium 4.5 mmol/L (3.5-5.1)
[2021-07-24] MEDS: MIDAZOLAM DRIP 50 mg/50mL 50 ML IV SCH ×2 (06:25→18:44)
[2021-07-24] MEDS: INSULIN LANTUS (GLARGINE) 1 /0.01ml (100units/ml) SC SCH ×2 (10:00→21:40)
[2021-07-24] MEDS: DexAMETHasone SOD PHOS 4 MG/1ML SDV INJ IV SCH (11:29)
[2021-07-24] MEDS: FUROSEMIDE 20 MG/2 ML VIAL IV SCH (11:30)
[2021-07-24] MEDS: SODIUM CHLOR 0.9% PF (SALINE LOCK) 10ML VIAL/SYR IV SCH ×2 (11:30→21:39)
[2021-07-24] MEDS: PANTOPRAZOLE 40 MG/10 ML VIAL INJ IV SCH (11:30)
[2021-07-24] MEDS: CHOLECALCIFEROL (VITD3) 2,000 UNIT CAP/TAB PO SCH (11:30)
[2021-07-24] MEDS: NOREPINEPHRINE 8 MG/250ML KIT 250 ML IV SCH ×2 (11:31→19:51)
[2021-07-24] MEDS ORDERED: METOCLOPRAMIDE HCL 5MG/ml INJ 2ml VIAL IV PRN (12:45)
[2021-07-24] MEDS: IPRATROPIUM BROM 0.5 MG/2.5ML INH SOL NEB SCH ×3 (14:00→22:20)
[2021-07-24] MEDS: BUDESONIDE (INHALATION) 0.5 MG/2 ML NEB NEB SCH ×2 (22:00→22:20)
[2021-07-24] MEDS: ALBUTEROL SULF 2.5 MG/0.5ML(0.5%) NEB SOLN NEB PRN (22:20)
[2021-07-25] VITALS (101 sets, daily range): BP systolic 90–165; BP diastolic 49–78
[2021-07-25] MEDS: SULFAMETH-TRIMETH 80/16MG-ML 20 ML in D5W 5% 500 ML IV SCH ×3 (01:57→18:30)
[2021-07-25] MEDS: PROPOFOL 100 ML IV SCH ×2 (02:45→18:29)
[2021-07-25 04:11] LABS: Hematocrit 26.9 % (41.0-53.0); Hemoglobin 9.4 g/dL (13.5-17.5); Mean Corpuscular Hemoglobin 32.4 pg (28.0-32.0); Mean Corpuscular Hgb Conc. 34.9 g/dL (32.0-36.0); Mean Corpuscular Volume 92.9 fL (80.0-100.0); Red Cell Distribution Width 14.5 % (11.8-14.3); White Blood Cell 6.6 10^3/uL (4.4-10.8)
[2021-07-25 04:38] LABS: BUN/Creatinine Ratio 31.2; Basophils % (manual) 0 (0.0-2.0); Blast Cells 0; Calcium 6.8 mg/dL (8.5-10.1); Eosinophils % (manual) 0 (0-7); Metamyelocytes % 0; Myelocytes % 0; Potassium 4.9 mmol/L (3.5-5.1); Promyelocytes % 0; Reactive Lymphocytes 0
[2021-07-25] MEDS: ACCU-CHEK COMFORT CURVE STRIP VI SCH ×4 (05:41→23:58)
[2021-07-25] MEDS: InsuLIN REG 1unit/0.01ml Soln (100units/ml) SC SCH ×4 (05:42→23:58)
[2021-07-25] MEDS: fentaNYL Drip 2500mCg/250mlNS 250 ML IV SCH ×2 (05:44→18:29)
[2021-07-25] MEDS: MIDAZOLAM DRIP 50 mg/50mL 50 ML IV SCH ×2 (05:45→18:30)
[2021-07-25] MEDS: BUDESONIDE (INHALATION) 0.5 MG/2 ML NEB NEB SCH ×2 (06:21→18:45)
[2021-07-25] MEDS: ALBUTEROL SULF 2.5 MG/0.5ML(0.5%) NEB SOLN NEB PRN ×2 (06:21→18:45)
[2021-07-25] MEDS: IPRATROPIUM BROM 0.5 MG/2.5ML INH SOL NEB SCH ×3 (06:21→18:45)
[2021-07-25 07:19] LABS: Band Neutrophils % (manual) 27; Lymphocytes % (manual) 2 (10.0-50.0); Monocytes % (manual) 1 (0-12)
[2021-07-25] MEDS ORDERED: Glucerna 1.2 Cal 1Liter BOTTLE GT SCH (07:45)
[2021-07-25] MEDS: FUROSEMIDE 20 MG/2 ML VIAL IV SCH (07:51)
[2021-07-25] MEDS: PANTOPRAZOLE 40 MG/10 ML VIAL INJ IV SCH (07:51)
[2021-07-25] MEDS: SODIUM CHLOR 0.9% PF (SALINE LOCK) 10ML VIAL/SYR IV SCH ×2 (07:51→21:38)
[2021-07-25] MEDS: DexAMETHasone SOD PHOS 4 MG/1ML SDV INJ IV SCH (07:51)
[2021-07-25] MEDS: CHOLECALCIFEROL (VITD3) 2,000 UNIT CAP/TAB PO SCH (07:52)
[2021-07-25] MEDS: INSULIN LANTUS (GLARGINE) 1 /0.01ml (100units/ml) SC SCH ×2 (10:00→21:38)
[2021-07-26] VITALS (100 sets, daily range): BP systolic 79–149; BP diastolic 42–73
[2021-07-26] MEDS: MIDAZOLAM DRIP 50 mg/50mL 50 ML IV SCH ×2 (00:39→11:26)
[2021-07-26] MEDS: SULFAMETH-TRIMETH 80/16MG-ML 20 ML in D5W 5% 500 ML IV SCH ×3 (01:56→19:05)
[2021-07-26 03:47] LABS: Basophils # (auto) 0 10 ^3/uL (0-0.2); Basophils % (auto) 0.6 % (0.0-2.0); Eosinophils # (auto) 0 10 ^3/uL (0-0.8); Eosinophils % (auto) 0.1 % (0.0-7.0); Hematocrit 26.4 % (41.0-53.0); Hemoglobin 9.2 g/dL (13.5-17.5); Lymphocytes # (auto) 0.1 10 ^3/uL (0.4-5.4); Lymphocytes % (auto) 2.1 % (10.0-50.0); Mean Corpuscular Hemoglobin 32.5 pg (28.0-32.0); Mean Corpuscular Hgb Conc. 34.8 g/dL (32.0-36.0); Mean Corpuscular Volume 93.3 fL (80.0-100.0); Monocytes # (auto) 0 10 ^3/uL (0-1.3); Monocytes % (auto) 0.5 % (0.0-12.0); Neutrophils # (auto) 4.5 10 ^3/uL (1.6-8.6); Neutrophils % (auto) 96.7 % (37.0-80.0); Nucleated Red Blood Cells % 0.4 %; Red Blood Cells 2.83 10^6/uL (4.5-5.90); Red Cell Distribution Width 14.7 % (11.8-14.3); White Blood Cell 4.7 10^3/uL (4.4-10.8)
[2021-07-26 04:07] LABS: Calcium 6.9 mg/dL (8.5-10.1); Potassium 4.7 mmol/L (3.5-5.1)
[2021-07-26] MEDS: PROPOFOL 100 ML IV SCH ×4 (04:07→21:55)
[2021-07-26] MEDS: fentaNYL Drip 2500mCg/250mlNS 250 ML IV SCH ×2 (04:08→15:00)
[2021-07-26 04:09] LABS: BUN/Creatinine Ratio 32.8
[2021-07-26] MEDS: ACCU-CHEK COMFORT CURVE STRIP VI SCH ×3 (05:52→18:00)
[2021-07-26] MEDS: InsuLIN REG 1unit/0.01ml Soln (100units/ml) SC SCH ×3 (05:52→18:00)
[2021-07-26] MEDS: BUDESONIDE (INHALATION) 0.5 MG/2 ML NEB NEB SCH ×2 (05:57→22:53)
[2021-07-26] MEDS: ALBUTEROL SULF 2.5 MG/0.5ML(0.5%) NEB SOLN NEB PRN ×2 (05:57→22:53)
[2021-07-26] MEDS: IPRATROPIUM BROM 0.5 MG/2.5ML INH SOL NEB SCH ×3 (05:58→22:53)
[2021-07-26] MEDS: SODIUM CHLOR 0.9% PF (SALINE LOCK) 10ML VIAL/SYR IV SCH ×2 (10:11→21:53)
[2021-07-26] MEDS: DexAMETHasone SOD PHOS 4 MG/1ML SDV INJ IV SCH (10:11)
[2021-07-26] MEDS: PANTOPRAZOLE 40 MG/10 ML VIAL INJ IV SCH (10:11)
[2021-07-26] MEDS: CHOLECALCIFEROL (VITD3) 2,000 UNIT CAP/TAB PO SCH (10:12)
[2021-07-26] MEDS: FUROSEMIDE 20 MG/2 ML VIAL IV SCH ×2 (10:12→16:15)
[2021-07-26] MEDS ORDERED: FLUCONAZOLE 200MG/100ML 100 ML IV ONE (11:15)
[2021-07-26] MEDS: ALBUMIN 25% 50 ML IV SCH ×2 (13:31→19:42)
[2021-07-26] MEDS ORDERED: levoFLOXacin 500MG 100 ML IV ONE (15:45)
[2021-07-26] MEDS: NOREPINEPHRINE 8 MG/250ML KIT 250 ML IV SCH (17:00)
[2021-07-27] VITALS (101 sets, daily range): BP systolic 101–145; BP diastolic 50–74
[2021-07-27] MEDS: ACCU-CHEK COMFORT CURVE STRIP VI SCH ×5 (00:02→23:56)
[2021-07-27] MEDS: InsuLIN REG 1unit/0.01ml Soln (100units/ml) SC SCH ×5 (00:04→23:57)
[2021-07-27] MEDS: SULFAMETH-TRIMETH 80/16MG-ML 20 ML in D5W 5% 500 ML IV SCH ×3 (02:34→19:44)
[2021-07-27] MEDS: ALBUMIN 25% 50 ML IV SCH (02:35)
[2021-07-27] MEDS: fentaNYL Drip 2500mCg/250mlNS 250 ML IV SCH ×2 (03:11→14:47)
[2021-07-27] MEDS: MIDAZOLAM DRIP 50 mg/50mL 50 ML IV SCH ×2 (03:12→19:56)
[2021-07-27 03:58] LABS: Albumin 1.7 g/dL (3.4-5.0); BUN/Creatinine Ratio 35.1; Calcium 6.6 mg/dL (8.5-10.1); Potassium 4.8 mmol/L (3.5-5.1)
[2021-07-27 04:00] LABS: Bilirubin, Total 0.3 mg/dL (0.2-1.0); Total Protein 3.9 g/dL (6.4-8.2)
[2021-07-27 04:31] LABS: Basophils # (auto) 0 10 ^3/uL (0-0.2); Eosinophils # (auto) 0 10 ^3/uL (0-0.8); Lymphocytes # (auto) 0.1 10 ^3/uL (0.4-5.4); Monocytes # (auto) 0 10 ^3/uL (0-1.3); White Blood Cell 2.5 10^3/uL (4.4-10.8)
[2021-07-27 04:33] LABS: Basophils % (auto) 0.9 % (0.0-2.0); Hematocrit 18.8 % (41.0-53.0); Lymphocytes % (auto) 2.2 % (10.0-50.0); Mean Corpuscular Hemoglobin 32.2 pg (28.0-32.0); Mean Corpuscular Hgb Conc. 34.6 g/dL (32.0-36.0); Mean Corpuscular Volume 93.1 fL (80.0-100.0); Monocytes % (auto) 0.8 % (0.0-12.0); Neutrophils # (auto) 2.4 10 ^3/uL (1.6-8.6); Neutrophils % (auto) 96.1 % (37.0-80.0); Nucleated Red Blood Cells % 0.6 %; Red Blood Cells 2.02 10^6/uL (4.5-5.90); Red Cell Distribution Width 14.7 % (11.8-14.3)
[2021-07-27 05:06] LABS: Hemoglobin 6.5 g/dL (13.5-17.5)
[2021-07-27] MEDS: BUDESONIDE (INHALATION) 0.5 MG/2 ML NEB NEB SCH ×2 (05:45→22:37)
[2021-07-27] MEDS: ALBUTEROL SULF 2.5 MG/0.5ML(0.5%) NEB SOLN NEB PRN ×2 (05:45→22:37)
[2021-07-27] MEDS: IPRATROPIUM BROM 0.5 MG/2.5ML INH SOL NEB SCH ×3 (06:00→22:38)
[2021-07-27] MEDS: FLUCONAZOLE 200MG/100ML 100 ML IV SCH (08:00)
[2021-07-27] MEDS: levoFLOXacin 500MG 100 ML IV SCH (09:11)
[2021-07-27] MEDS: SODIUM CHLOR 0.9% PF (SALINE LOCK) 10ML VIAL/SYR IV SCH ×2 (09:55→22:25)
[2021-07-27] MEDS: PANTOPRAZOLE 40 MG/10 ML VIAL INJ IV SCH ×2 (09:55→22:25)
[2021-07-27] MEDS: DexAMETHasone SOD PHOS 4 MG/1ML SDV INJ IV SCH (09:55)
[2021-07-27] MEDS: FUROSEMIDE 20 MG/2 ML VIAL IV SCH (09:55)
[2021-07-27] MEDS ORDERED: ALBUMIN 25% 100 ML IV ONE (14:00)
[2021-07-27] MEDS: CHOLECALCIFEROL (VITD3) 2,000 UNIT CAP/TAB PO SCH (15:30)
[2021-07-27 16:09] LABS: Hemoglobin 8.4 g/dL (13.5-17.5)
[2021-07-27 16:10] LABS: Hematocrit 23.2 % (41.0-53.0)
[2021-07-27] MEDS: NOREPINEPHRINE 8 MG/250ML KIT 250 ML IV SCH (17:00)
[2021-07-27 17:43] LABS: INR 0.99 (0.9-1.15)
[2021-07-27 17:44] LABS: Partial Thromboplastin Time 33.6 sec (23.6-33.0)
[2021-07-28] VITALS (99 sets, daily range): BP systolic 98–170; BP diastolic 54–81
[2021-07-28] MEDS: SULFAMETH-TRIMETH 80/16MG-ML 20 ML in D5W 5% 500 ML IV SCH ×3 (02:00→17:02)
[2021-07-28] MEDS: PROPOFOL 100 ML IV SCH ×2 (04:17→09:21)
[2021-07-28 04:54] LABS: Basophils # (auto) 0 10 ^3/uL (0-0.2); Eosinophils # (auto) 0 10 ^3/uL (0-0.8); Lymphocytes # (auto) 0.1 10 ^3/uL (0.4-5.4); Monocytes # (auto) 0 10 ^3/uL (0-1.3); White Blood Cell 3.1 10^3/uL (4.4-10.8)
[2021-07-28 04:57] LABS: Basophils % (auto) 0.4 % (0.0-2.0); Hematocrit 23.8 % (41.0-53.0); Hemoglobin 8.6 g/dL (13.5-17.5); Lymphocytes % (auto) 2.7 % (10.0-50.0); Mean Corpuscular Hemoglobin 33.4 pg (28.0-32.0); Mean Corpuscular Volume 92.8 fL (80.0-100.0); Monocytes % (auto) 1.2 % (0.0-12.0); Neutrophils % (auto) 95.7 % (37.0-80.0); Nucleated Red Blood Cells % 0.6 %; Red Blood Cells 2.56 10^6/uL (4.5-5.90); Red Cell Distribution Width 14.3 % (11.8-14.3)
[2021-07-28 05:25] LABS: INR 0.99 (0.9-1.15); Partial Thromboplastin Time 35.6 sec (23.6-33.0)
[2021-07-28 05:34] LABS: Potassium 4.3 mmol/L (3.5-5.1)
[2021-07-28 05:40] LABS: Albumin 2.1 g/dL (3.4-5.0); Bilirubin, Total 0.3 mg/dL (0.2-1.0); Calcium 7.1 mg/dL (8.5-10.1); Total Protein 4.4 g/dL (6.4-8.2)
[2021-07-28] MEDS: InsuLIN REG 1unit/0.01ml Soln (100units/ml) SC SCH ×3 (06:00→17:03)
[2021-07-28] MEDS: ACCU-CHEK COMFORT CURVE STRIP VI SCH ×3 (06:27→17:04)
[2021-07-28] MEDS: MIDAZOLAM DRIP 50 mg/50mL 50 ML IV SCH (09:21)
[2021-07-28] MEDS: BUDESONIDE (INHALATION) 0.5 MG/2 ML NEB NEB SCH ×2 (09:51→21:41)
[2021-07-28] MEDS: IPRATROPIUM BROM 0.5 MG/2.5ML INH SOL NEB SCH ×3 (09:51→21:42)
[2021-07-28] MEDS: PANTOPRAZOLE 40 MG/10 ML VIAL INJ IV SCH ×2 (10:01→23:09)
[2021-07-28] MEDS: CHOLECALCIFEROL (VITD3) 2,000 UNIT CAP/TAB PO SCH (10:02)
[2021-07-28] MEDS: levoFLOXacin 500MG 100 ML IV SCH ×2 (10:02→11:21)
[2021-07-28] MEDS: FLUCONAZOLE 200MG/100ML 100 ML IV SCH (10:02)
[2021-07-28] MEDS: DexAMETHasone SOD PHOS 4 MG/1ML SDV INJ IV SCH (10:03)
[2021-07-28] MEDS: FUROSEMIDE 20 MG/2 ML VIAL IV SCH (10:03)
[2021-07-28] MEDS: SODIUM CHLOR 0.9% PF (SALINE LOCK) 10ML VIAL/SYR IV SCH ×2 (10:03→23:10)
[2021-07-28] MEDS: fentaNYL Drip 2500mCg/250mlNS 250 ML IV SCH (10:48)
[2021-07-28] MEDS: ALBUTEROL SULF 2.5 MG/0.5ML(0.5%) NEB SOLN NEB PRN ×2 (14:34→21:41)
[2021-07-28] MEDS: NOREPINEPHRINE 8 MG/250ML KIT 250 ML IV SCH (20:00)
[2021-07-29] VITALS (100 sets, daily range): BP systolic 116–153; BP diastolic 60–92
[2021-07-29] MEDS: SULFAMETH-TRIMETH 80/16MG-ML 20 ML in D5W 5% 500 ML IV SCH ×3 (02:31→17:41)
[2021-07-29 04:21] LABS: Hemoglobin 9.3 g/dL (13.5-17.5); Mean Corpuscular Hgb Conc. 34.9 g/dL (32.0-36.0); Red Blood Cells 2.85 10^6/uL (4.5-5.90)
[2021-07-29 04:23] LABS: Hematocrit 26.6 % (41.0-53.0); Mean Corpuscular Hemoglobin 32.6 pg (28.0-32.0); Mean Corpuscular Volume 93.3 fL (80.0-100.0); Red Cell Distribution Width 14.3 % (11.8-14.3)
[2021-07-29 04:51] LABS: BUN/Creatinine Ratio 36.5; Calcium 6.9 mg/dL (8.5-10.1); Potassium 3.9 mmol/L (3.5-5.1)
[2021-07-29 04:54] LABS: Bilirubin, Total 0.4 mg/dL (0.2-1.0); Total Protein 4.3 g/dL (6.4-8.2)
[2021-07-29 05:12] LABS: Basophils % (manual) 0 (0.0-2.0); Blast Cells 0; Eosinophils % (manual) 0 (0-7); Metamyelocytes % 0; Myelocytes % 0; Promyelocytes % 0; Reactive Lymphocytes 0
[2021-07-29] MEDS: InsuLIN REG 1unit/0.01ml Soln (100units/ml) SC SCH ×4 (05:59→17:27)
[2021-07-29] MEDS: ACCU-CHEK COMFORT CURVE STRIP VI SCH ×4 (05:59→17:29)
[2021-07-29] MEDS: IPRATROPIUM BROM 0.5 MG/2.5ML INH SOL NEB SCH ×3 (06:03→18:58)
[2021-07-29] MEDS: BUDESONIDE (INHALATION) 0.5 MG/2 ML NEB NEB SCH ×2 (06:03→18:58)
[2021-07-29] MEDS: ALBUTEROL SULF 2.5 MG/0.5ML(0.5%) NEB SOLN NEB PRN (06:03)
[2021-07-29] MEDS: MIDAZOLAM DRIP 50 mg/50mL 50 ML IV SCH ×3 (07:59→17:50)
[2021-07-29] MEDS: SODIUM CHLOR 0.9% PF (SALINE LOCK) 10ML VIAL/SYR IV SCH ×2 (10:00→22:00)
[2021-07-29] MEDS: FUROSEMIDE 20 MG/2 ML VIAL IV SCH (10:00)
[2021-07-29] MEDS: fentaNYL Drip 2500mCg/250mlNS 250 ML IV SCH (10:40)
[2021-07-29] MEDS: levoFLOXacin 500MG 100 ML IV SCH (10:42)
[2021-07-29] MEDS: FLUCONAZOLE 200MG/100ML 100 ML IV SCH (10:43)
[2021-07-29] MEDS: PANTOPRAZOLE 40 MG/10 ML VIAL INJ IV SCH ×2 (10:44→22:00)
[2021-07-29] MEDS: DexAMETHasone SOD PHOS 4 MG/1ML SDV INJ IV SCH (10:46)
[2021-07-29] MEDS: CHOLECALCIFEROL (VITD3) 2,000 UNIT CAP/TAB PO SCH (10:47)
[2021-07-29 11:22] LABS: Band Neutrophils % (manual) 3; Lymphocytes % (manual) 6 (10.0-50.0); Monocytes % (manual) 1 (0-12)
[2021-07-29] MEDS: METOCLOPRAMIDE HCL 5MG/ml INJ 2ml VIAL IV SCH ×2 (12:00→18:00)
[2021-07-29] MEDS ORDERED: METOPROLOL TARTRATE 1MG/1ML-5ML VIAL IV ONE (15:45)
[2021-07-30] VITALS (95 sets, daily range): BP systolic 105–148; BP diastolic 62–84
[2021-07-30] MEDS: fentaNYL Drip 2500mCg/250mlNS 250 ML IV SCH ×3 (01:24→23:10)
[2021-07-30] MEDS: PROPOFOL 100 ML IV SCH ×2 (02:15→23:09)
[2021-07-30] MEDS: SULFAMETH-TRIMETH 80/16MG-ML 20 ML in D5W 5% 500 ML IV SCH ×3 (02:49→18:06)
[2021-07-30 05:31] LABS: Basophils # (auto) 0 10 ^3/uL (0-0.2); Eosinophils # (auto) 0 10 ^3/uL (0-0.8); Hemoglobin 10.6 g/dL (13.5-17.5); Lymphocytes # (auto) 0.1 10 ^3/uL (0.4-5.4); Monocytes # (auto) 0.1 10 ^3/uL (0-1.3)
[2021-07-30 05:34] LABS: Basophils % (auto) 0.2 % (0.0-2.0); Hematocrit 31.2 % (41.0-53.0); Lymphocytes % (auto) 1.6 % (10.0-50.0); Mean Corpuscular Hemoglobin 31.9 pg (28.0-32.0); Mean Corpuscular Volume 93.9 fL (80.0-100.0); Monocytes % (auto) 1.6 % (0.0-12.0); Neutrophils # (auto) 4.3 10 ^3/uL (1.6-8.6); Neutrophils % (auto) 96.6 % (37.0-80.0); Nucleated Red Blood Cells % 0.5 %; Red Blood Cells 3.32 10^6/uL (4.5-5.90); Red Cell Distribution Width 14.5 % (11.8-14.3); White Blood Cell 4.5 10^3/uL (4.4-10.8)
[2021-07-30 05:46] LABS: Albumin 2.2 g/dL (3.4-5.0); BUN/Creatinine Ratio 28.8; Calcium 7.4 mg/dL (8.5-10.1); Potassium 3.6 mmol/L (3.5-5.1)
[2021-07-30 05:48] LABS: Bilirubin, Total 0.4 mg/dL (0.2-1.0); Total Protein 4.7 g/dL (6.4-8.2)
[2021-07-30] MEDS: ACCU-CHEK COMFORT CURVE STRIP VI SCH ×4 (06:17→18:07)
[2021-07-30] MEDS: METOCLOPRAMIDE HCL 5MG/ml INJ 2ml VIAL IV SCH ×4 (06:18→18:06)
[2021-07-30] MEDS: InsuLIN REG 1unit/0.01ml Soln (100units/ml) SC SCH ×4 (06:19→18:07)
[2021-07-30] MEDS: ALBUTEROL SULF 2.5 MG/0.5ML(0.5%) NEB SOLN NEB PRN ×3 (06:26→22:26)
[2021-07-30] MEDS: IPRATROPIUM BROM 0.5 MG/2.5ML INH SOL NEB SCH ×3 (06:26→22:26)
[2021-07-30] MEDS: BUDESONIDE (INHALATION) 0.5 MG/2 ML NEB NEB SCH ×2 (06:26→22:26)
[2021-07-30] MEDS: PANTOPRAZOLE 40 MG/10 ML VIAL INJ IV SCH ×2 (10:25→22:53)
[2021-07-30] MEDS: DexAMETHasone SOD PHOS 4 MG/1ML SDV INJ IV SCH (10:26)
[2021-07-30] MEDS: FUROSEMIDE 20 MG/2 ML VIAL IV SCH (10:26)
[2021-07-30] MEDS: SODIUM CHLOR 0.9% PF (SALINE LOCK) 10ML VIAL/SYR IV SCH ×2 (10:26→22:53)
[2021-07-30 10:52] LABS: Lactic Acid w/Reflex 2.5 mmol/L (0.4-2.0)
[2021-07-30] MEDS: ASCORBIC ACID 500 MG TAB PO SCH (12:09)
[2021-07-30] MEDS: ZINC SULFATE 220mg CAP or TAB PO SCH (12:09)
[2021-07-30] MEDS: CHOLECALCIFEROL (VITD3) 2,000 UNIT CAP/TAB PO SCH (12:09)
[2021-07-30] MEDS: FLUCONAZOLE 200MG/100ML 100 ML IV SCH (12:10)
[2021-07-30] MEDS: MIDAZOLAM DRIP 50 mg/50mL 50 ML IV SCH ×2 (14:06→23:10)
[2021-07-30] MEDS: DAPTOmycin 250 MG in SODIUM CHL 0.9% 50 ML IV SCH (15:26)
[2021-07-30] MEDS: NOREPINEPHRINE 8 MG/250ML KIT 250 ML IV SCH (21:01)
[2021-07-31] VITALS (99 sets, daily range): BP systolic 87–166; BP diastolic 45–91
[2021-07-31] MEDS: METOCLOPRAMIDE HCL 5MG/ml INJ 2ml VIAL IV SCH ×5 (00:56→21:49)
[2021-07-31] MEDS: ACCU-CHEK COMFORT CURVE STRIP VI SCH ×4 (00:56→18:15)
[2021-07-31] MEDS: SULFAMETH-TRIMETH 80/16MG-ML 20 ML in D5W 5% 500 ML IV SCH ×3 (02:16→18:00)
[2021-07-31 03:56] LABS: Hemoglobin 10.4 g/dL (13.5-17.5); White Blood Cell 3.9 10^3/uL (4.4-10.8)
[2021-07-31 03:58] LABS: Hematocrit 29.7 % (41.0-53.0); Mean Corpuscular Hemoglobin 33.1 pg (28.0-32.0); Mean Corpuscular Volume 94.7 fL (80.0-100.0); Red Blood Cells 3.14 10^6/uL (4.5-5.90); Red Cell Distribution Width 14.9 % (11.8-14.3)
[2021-07-31 04:05] LABS: Basophils % (manual) 0 (0.0-2.0); Blast Cells 0; Eosinophils % (manual) 0 (0-7); Metamyelocytes % 0; Promyelocytes % 0; Reactive Lymphocytes 0
[2021-07-31 04:12] LABS: Albumin 1.9 g/dL (3.4-5.0); Calcium 6.8 mg/dL (8.5-10.1); Potassium 3.8 mmol/L (3.5-5.1)
[2021-07-31 04:14] LABS: Bilirubin, Total 0.4 mg/dL (0.2-1.0); Total Protein 4.4 g/dL (6.4-8.2)
[2021-07-31 04:52] LABS: Monocytes % (manual) 2 (0-12); Myelocytes % 4
[2021-07-31 04:53] LABS: Band Neutrophils % (manual) 27; Lymphocytes % (manual) 3 (10.0-50.0)
[2021-07-31] MEDS: InsuLIN REG 1unit/0.01ml Soln (100units/ml) SC SCH ×4 (06:23→18:00)
[2021-07-31] MEDS: IPRATROPIUM BROM 0.5 MG/2.5ML INH SOL NEB SCH ×3 (06:30→19:40)
[2021-07-31] MEDS: ALBUTEROL SULF 2.5 MG/0.5ML(0.5%) NEB SOLN NEB PRN ×3 (06:30→19:40)
[2021-07-31] MEDS: BUDESONIDE (INHALATION) 0.5 MG/2 ML NEB NEB SCH ×2 (06:30→19:40)
[2021-07-31 09:46] LABS: INR 0.95 (0.9-1.15)
[2021-07-31] MEDS: DexAMETHasone SOD PHOS 4 MG/1ML SDV INJ IV SCH (09:48)
[2021-07-31] MEDS: SODIUM CHLOR 0.9% PF (SALINE LOCK) 10ML VIAL/SYR IV SCH ×2 (09:49→21:49)
[2021-07-31] MEDS: FUROSEMIDE 20 MG/2 ML VIAL IV SCH (09:49)
[2021-07-31] MEDS: ZINC SULFATE 220mg CAP or TAB PO SCH (09:49)
[2021-07-31] MEDS: levoFLOXacin 500MG 100 ML IV SCH (09:49)
[2021-07-31] MEDS: PANTOPRAZOLE 40 MG/10 ML VIAL INJ IV SCH ×2 (09:49→21:49)
[2021-07-31] MEDS: ASCORBIC ACID 500 MG TAB PO SCH (09:49)
[2021-07-31] MEDS: CHOLECALCIFEROL (VITD3) 2,000 UNIT CAP/TAB PO SCH (09:49)
[2021-07-31] MEDS: PROPOFOL 100 ML IV SCH (11:56)
[2021-07-31] MEDS: FLUCONAZOLE 200MG/100ML 100 ML IV SCH (12:00)
[2021-07-31] MEDS: DAPTOmycin 250 MG in SODIUM CHL 0.9% 50 ML IV SCH (15:00)
[2021-07-31] MEDS: NOREPINEPHRINE 8 MG/250ML KIT 250 ML IV SCH (17:00)
[2021-08-01] VITALS (101 sets, daily range): BP systolic 92–128; BP diastolic 54–78
[2021-08-01] MEDS: SULFAMETH-TRIMETH 80/16MG-ML 20 ML in D5W 5% 500 ML IV SCH ×3 (02:07→18:35)
[2021-08-01 03:43] LABS: Hematocrit 29.3 % (41.0-53.0); Hemoglobin 9.9 g/dL (13.5-17.5); Mean Corpuscular Hemoglobin 31.9 pg (28.0-32.0); Mean Corpuscular Hgb Conc. 33.8 g/dL (32.0-36.0); Mean Corpuscular Volume 94.4 fL (80.0-100.0); White Blood Cell 5.7 10^3/uL (4.4-10.8)
[2021-08-01 03:57] LABS: Basophils % (manual) 0 (0.0-2.0); Blast Cells 0; Eosinophils % (manual) 0 (0-7); Metamyelocytes % 0; Promyelocytes % 0; Reactive Lymphocytes 0
[2021-08-01 03:59] LABS: Calcium 7.2 mg/dL (8.5-10.1); Potassium 4.4 mmol/L (3.5-5.1)
[2021-08-01 04:02] LABS: BUN/Creatinine Ratio 29.6
[2021-08-01 04:23] LABS: Band Neutrophils % (manual) 29; Lymphocytes % (manual) 3 (10.0-50.0); Monocytes % (manual) 1 (0-12); Myelocytes % 6
[2021-08-01] MEDS: InsuLIN REG 1unit/0.01ml Soln (100units/ml) SC SCH ×4 (06:00→17:02)
[2021-08-01] MEDS: ACCU-CHEK COMFORT CURVE STRIP VI SCH ×4 (06:03→17:02)
[2021-08-01] MEDS: METOCLOPRAMIDE HCL 5MG/ml INJ 2ml VIAL IV SCH ×3 (06:03→17:02)
[2021-08-01] MEDS: levoFLOXacin 500MG 100 ML IV SCH (10:00)
[2021-08-01] MEDS: DexAMETHasone SOD PHOS 4 MG/1ML SDV INJ IV SCH (10:12)
[2021-08-01] MEDS: FUROSEMIDE 20 MG/2 ML VIAL IV SCH (10:12)
[2021-08-01] MEDS: ZINC SULFATE 220mg CAP or TAB PO SCH (10:13)
[2021-08-01] MEDS: ALBUTEROL SULF 2.5 MG/0.5ML(0.5%) NEB SOLN NEB PRN ×2 (10:13→22:14)
[2021-08-01] MEDS: CHOLECALCIFEROL (VITD3) 2,000 UNIT CAP/TAB PO SCH (10:13)
[2021-08-01] MEDS: IPRATROPIUM BROM 0.5 MG/2.5ML INH SOL NEB SCH ×3 (10:13→22:14)
[2021-08-01] MEDS: SODIUM CHLOR 0.9% PF (SALINE LOCK) 10ML VIAL/SYR IV SCH ×2 (10:13→18:40)
[2021-08-01] MEDS: BUDESONIDE (INHALATION) 0.5 MG/2 ML NEB NEB SCH ×2 (10:13→22:14)
[2021-08-01] MEDS: PANTOPRAZOLE 40 MG/10 ML VIAL INJ IV SCH ×2 (10:13→19:14)
[2021-08-01] MEDS: ASCORBIC ACID 500 MG TAB PO SCH (10:13)
[2021-08-01] MEDS: FLUCONAZOLE 200MG/100ML 100 ML IV SCH (12:22)
[2021-08-01] MEDS: DAPTOmycin 250 MG in SODIUM CHL 0.9% 50 ML IV SCH (14:53)
[2021-08-01] MEDS: MIDAZOLAM DRIP 50 mg/50mL 50 ML IV SCH (17:02)
[2021-08-01] MEDS: NOREPINEPHRINE 8 MG/250ML KIT 250 ML IV SCH (18:09)
[2021-08-01] MEDS: LACTULOSE 20Gm/30ML SOLN PO SCH (19:14)
[2021-08-01] MEDS: fentaNYL Drip 2500mCg/250mlNS 250 ML IV SCH (19:14)
[2021-08-02] VITALS (102 sets, daily range): BP systolic 85–132; BP diastolic 51–84
[2021-08-02] MEDS: ACCU-CHEK COMFORT CURVE STRIP VI SCH ×4 (00:10→18:01)
[2021-08-02] MEDS: METOCLOPRAMIDE HCL 5MG/ml INJ 2ml VIAL IV SCH ×4 (00:39→18:00)
[2021-08-02] MEDS: SULFAMETH-TRIMETH 80/16MG-ML 20 ML in D5W 5% 500 ML IV SCH ×3 (03:02→18:00)
[2021-08-02] MEDS: PROPOFOL 100 ML IV SCH (03:03)
[2021-08-02 04:36] LABS: Hemoglobin 9.3 g/dL (13.5-17.5); Red Cell Distribution Width 15.4 % (11.8-14.3); White Blood Cell 5.2 10^3/uL (4.4-10.8)
[2021-08-02 04:45] LABS: Calcium 6.9 mg/dL (8.5-10.1); Hematocrit 26.8 % (41.0-53.0); Mean Corpuscular Hgb Conc. 34.6 g/dL (32.0-36.0); Mean Corpuscular Volume 95.3 fL (80.0-100.0); Potassium 4.4 mmol/L (3.5-5.1); Red Blood Cells 2.82 10^6/uL (4.5-5.90)
[2021-08-02 04:47] LABS: BUN/Creatinine Ratio 29.9; Basophils % (manual) 0 (0.0-2.0); Blast Cells 0; Eosinophils % (manual) 0 (0-7); Metamyelocytes % 0; Promyelocytes % 0; Reactive Lymphocytes 0
[2021-08-02 05:55] LABS: Band Neutrophils % (manual) 37; Lymphocytes % (manual) 2 (10.0-50.0); Monocytes % (manual) 1 (0-12); Myelocytes % 1
[2021-08-02] MEDS: InsuLIN REG 1unit/0.01ml Soln (100units/ml) SC SCH ×4 (06:00→18:00)
[2021-08-02] MEDS: LACTULOSE 20Gm/30ML SOLN PO SCH ×4 (06:03→18:01)
[2021-08-02] MEDS: ALBUTEROL SULF 2.5 MG/0.5ML(0.5%) NEB SOLN NEB PRN ×2 (06:11→18:57)
[2021-08-02] MEDS: IPRATROPIUM BROM 0.5 MG/2.5ML INH SOL NEB SCH ×3 (06:11→18:57)
[2021-08-02] MEDS: BUDESONIDE (INHALATION) 0.5 MG/2 ML NEB NEB SCH ×2 (06:11→18:58)
[2021-08-02] MEDS: fentaNYL Drip 2500mCg/250mlNS 250 ML IV SCH (09:00)
[2021-08-02] MEDS: SODIUM CHLOR 0.9% PF (SALINE LOCK) 10ML VIAL/SYR IV SCH ×2 (10:00→20:29)
[2021-08-02] MEDS: FUROSEMIDE 20 MG/2 ML VIAL IV SCH (12:44)
[2021-08-02] MEDS: levoFLOXacin 500MG 100 ML IV SCH (12:44)
[2021-08-02] MEDS: ASCORBIC ACID 500 MG TAB PO SCH (12:45)
[2021-08-02] MEDS: ZINC SULFATE 220mg CAP or TAB PO SCH (12:45)
[2021-08-02] MEDS: FLUCONAZOLE 200MG/100ML 100 ML IV SCH (12:45)
[2021-08-02] MEDS: CHOLECALCIFEROL (VITD3) 2,000 UNIT CAP/TAB PO SCH (12:45)
[2021-08-02] MEDS: PANTOPRAZOLE 40 MG/10 ML VIAL INJ IV SCH ×2 (12:45→20:39)
[2021-08-02] MEDS ORDERED: TPN PER PHARMACY 0 ML IV SCH (13:00)
[2021-08-02] MEDS ORDERED: FUROSEMIDE 20 MG/2 ML VIAL IV ONE (13:00)
[2021-08-02] MEDS ORDERED: SODIUM CHL 3% 500 ML IV ONE (13:15)
[2021-08-02] MEDS: DAPTOmycin 250 MG in SODIUM CHL 0.9% 50 ML IV SCH (15:45)
[2021-08-02] MEDS: NOREPINEPHRINE 8 MG/250ML KIT 250 ML IV SCH (17:00)
[2021-08-02] MEDS: MIDAZOLAM DRIP 50 mg/50mL 50 ML IV SCH (17:17)
[2021-08-02] MEDS: AMINO ACID INFUSION IN D10W 1,000 ML IV NR (20:40)
[2021-08-03] VITALS (79 sets, daily range): BP systolic 83–125; BP diastolic 42–68
[2021-08-03] MEDS: METOCLOPRAMIDE HCL 5MG/ml INJ 2ml VIAL IV SCH ×5 (01:08→23:26)
[2021-08-03] MEDS: SULFAMETH-TRIMETH 80/16MG-ML 20 ML in D5W 5% 500 ML IV SCH ×3 (01:09→17:30)
[2021-08-03] MEDS: LACTULOSE 20Gm/30ML SOLN PO SCH ×5 (01:09→23:26)
[2021-08-03] MEDS: PROPOFOL 100 ML IV SCH ×2 (01:10→13:04)
[2021-08-03 04:11] LABS: Mean Corpuscular Hgb Conc. 34.9 g/dL (32.0-36.0); Mean Corpuscular Volume 95.6 fL (80.0-100.0); Red Cell Distribution Width 15.6 % (11.8-14.3)
[2021-08-03 04:13] LABS: Hematocrit 28.2 % (41.0-53.0); Hemoglobin 9.8 g/dL (13.5-17.5); Mean Corpuscular Hemoglobin 33.4 pg (28.0-32.0); Red Blood Cells 2.95 10^6/uL (4.5-5.90); White Blood Cell 4.7 10^3/uL (4.4-10.8)
[2021-08-03 04:23] LABS: Basophils % (manual) 0 (0.0-2.0); Blast Cells 0; Eosinophils % (manual) 0 (0-7); Metamyelocytes % 0; Monocytes % (manual) 0 (0-12); Myelocytes % 0; Promyelocytes % 0; Reactive Lymphocytes 0
[2021-08-03 04:33] LABS: Albumin 1.7 g/dL (3.4-5.0); Calcium 6.9 mg/dL (8.5-10.1); Magnesium 2.9 mg/dL (1.6-2.6); Potassium 4.4 mmol/L (3.5-5.1)
[2021-08-03 04:39] LABS: BUN/Creatinine Ratio 35.2; Bilirubin, Total 0.5 mg/dL (0.2-1.0); Phosphorus 3.9 mg/dL (2.5-4.90); Pre Albumin 21.3 mg/dL (20.0-40.0); Total Protein 4.4 g/dL (6.4-8.2)
[2021-08-03 05:30] LABS: Band Neutrophils % (manual) 22; Lymphocytes % (manual) 2 (10.0-50.0)
[2021-08-03] MEDS: InsuLIN REG 1unit/0.01ml Soln (100units/ml) SC SCH ×5 (05:34→23:26)
[2021-08-03] MEDS: ACCU-CHEK COMFORT CURVE STRIP VI SCH ×5 (05:35→23:26)
[2021-08-03] MEDS: ALBUTEROL SULF 2.5 MG/0.5ML(0.5%) NEB SOLN NEB PRN ×3 (06:28→22:14)
[2021-08-03] MEDS: IPRATROPIUM BROM 0.5 MG/2.5ML INH SOL NEB SCH ×3 (06:28→22:14)
[2021-08-03] MEDS: BUDESONIDE (INHALATION) 0.5 MG/2 ML NEB NEB SCH ×2 (06:29→22:14)
[2021-08-03] MEDS: fentaNYL Drip 2500mCg/250mlNS 250 ML IV SCH (09:03)
[2021-08-03] MEDS: MIDAZOLAM DRIP 50 mg/50mL 50 ML IV SCH ×2 (09:04→13:05)
[2021-08-03] MEDS: CHOLECALCIFEROL (VITD3) 2,000 UNIT CAP/TAB PO SCH (09:49)
[2021-08-03] MEDS: ASCORBIC ACID 500 MG TAB PO SCH (09:50)
[2021-08-03] MEDS: ZINC SULFATE 220mg CAP or TAB PO SCH (09:50)
[2021-08-03] MEDS: FUROSEMIDE 20 MG/2 ML VIAL IV SCH (09:50)
[2021-08-03] MEDS: levoFLOXacin 500MG 100 ML IV SCH (09:51)
[2021-08-03] MEDS: SODIUM CHLOR 0.9% PF (SALINE LOCK) 10ML VIAL/SYR IV SCH ×2 (09:51→20:32)
[2021-08-03] MEDS: PANTOPRAZOLE 40 MG/10 ML VIAL INJ IV SCH ×2 (12:00→20:38)
[2021-08-03] MEDS: FLUCONAZOLE 200MG/100ML 100 ML IV SCH (12:03)
[2021-08-03] MEDS: DAPTOmycin 250 MG in SODIUM CHL 0.9% 50 ML IV SCH (15:27)
[2021-08-03] MEDS: NOREPINEPHRINE 8 MG/250ML KIT 250 ML IV SCH (17:00)
[2021-08-03] MEDS: AMINO ACID INFUSION IN D10W 1,000 ML IV NR (19:49)
[2021-08-03] MEDS ORDERED: TPN PER PHARMACY IV NR ×5 (20:00)
[2021-08-04] VITALS (99 sets, daily range): BP systolic 58–108; BP diastolic 27–57
[2021-08-04] MEDS: SULFAMETH-TRIMETH 80/16MG-ML 20 ML in D5W 5% 500 ML IV SCH ×2 (01:38→10:27)
[2021-08-04] MEDS: fentaNYL Drip 2500mCg/250mlNS 250 ML IV SCH ×3 (01:39→21:03)
[2021-08-04] MEDS: PROPOFOL 100 ML IV SCH ×5 (01:40→23:16)
[2021-08-04] MEDS: MIDAZOLAM DRIP 50 mg/50mL 50 ML IV SCH ×4 (01:40→23:15)
[2021-08-04] MEDS: NOREPINEPHRINE 8 MG/250ML KIT 250 ML IV SCH ×2 (01:40→23:15)
[2021-08-04] MEDS: BUDESONIDE (INHALATION) 0.5 MG/2 ML NEB NEB SCH ×3 (02:20→22:17)
[2021-08-04] MEDS: IPRATROPIUM BROM 0.5 MG/2.5ML INH SOL NEB SCH ×4 (02:20→22:17)
[2021-08-04 04:57] LABS: Hematocrit 27.8 % (41.0-53.0); Hemoglobin 9.7 g/dL (13.5-17.5); Mean Corpuscular Hemoglobin 33.3 pg (28.0-32.0); Mean Corpuscular Hgb Conc. 34.7 g/dL (32.0-36.0); Mean Corpuscular Volume 95.9 fL (80.0-100.0)
[2021-08-04 05:09] LABS: Potassium 4.2 mmol/L (3.5-5.1)
[2021-08-04 05:15] LABS: Basophils % (manual) 0 (0.0-2.0); Blast Cells 0; Eosinophils % (manual) 0 (0-7); Metamyelocytes % 0; Promyelocytes % 0; Reactive Lymphocytes 0
[2021-08-04 05:28] LABS: Albumin 1.5 g/dL (3.4-5.0); BUN/Creatinine Ratio 33.6; Bilirubin, Total 0.7 mg/dL (0.2-1.0); Calcium 6.6 mg/dL (8.5-10.1); Magnesium 2.6 mg/dL (1.6-2.6); Phosphorus 4.2 mg/dL (2.5-4.90); Total Protein 4.2 g/dL (6.4-8.2)
[2021-08-04] MEDS: InsuLIN REG 1unit/0.01ml Soln (100units/ml) SC SCH ×3 (06:00→18:00)
[2021-08-04] MEDS: ACCU-CHEK COMFORT CURVE STRIP VI SCH ×3 (06:00→18:00)
[2021-08-04] MEDS: ALBUTEROL SULF 2.5 MG/0.5ML(0.5%) NEB SOLN NEB PRN (06:15)
[2021-08-04 06:54] LABS: Band Neutrophils % (manual) 31; Lymphocytes % (manual) 6 (10.0-50.0); Monocytes % (manual) 1 (0-12); Myelocytes % 2
[2021-08-04] MEDS: METOCLOPRAMIDE HCL 5MG/ml INJ 2ml VIAL IV SCH (07:20)
[2021-08-04] MEDS: LACTULOSE 20Gm/30ML SOLN PO SCH (07:26)
[2021-08-04] MEDS: levoFLOXacin 500MG 100 ML IV SCH (09:53)
[2021-08-04] MEDS: PANTOPRAZOLE 40 MG/10 ML VIAL INJ IV SCH ×2 (09:54→22:27)
[2021-08-04] MEDS: FUROSEMIDE 20 MG/2 ML VIAL IV SCH (09:55)
[2021-08-04] MEDS: SODIUM CHLOR 0.9% PF (SALINE LOCK) 10ML VIAL/SYR IV SCH ×2 (09:55→22:27)
[2021-08-04] MEDS: ASCORBIC ACID 500 MG TAB PO SCH (09:55)
[2021-08-04] MEDS: CHOLECALCIFEROL (VITD3) 2,000 UNIT CAP/TAB PO SCH (09:55)
[2021-08-04] MEDS: ZINC SULFATE 220mg CAP or TAB PO SCH (09:55)
[2021-08-04] MEDS ORDERED: PHENYLEPHRINE IV 250 ML IV ONE (11:54)
[2021-08-04] MEDS: FLUCONAZOLE 200MG/100ML 100 ML IV SCH (12:28)
[2021-08-04] MEDS: PHENYLEPHRINE IV 250 ML IV SCH ×3 (13:26→23:14)
[2021-08-04] MEDS: SODIUM BICARBONATE 50ML VIAL 100 ML in SOD CHL 0.45% 1,000 ML IV SCH (14:30)
[2021-08-04] MEDS ORDERED: TPN*HIGH CONC* PER PHARMACY IV NR ×7 (20:00)
[2021-08-05] VITALS (39 sets, daily range): BP systolic 40–179; BP diastolic 18–104
[2021-08-05] MEDS: SODIUM BICARBONATE 50ML VIAL 100 ML in SOD CHL 0.45% 1,000 ML IV SCH (00:16)
[2021-08-05] MEDS: ACCU-CHEK COMFORT CURVE STRIP VI SCH ×2 (00:17→05:35)
[2021-08-05] MEDS: ALBUTEROL SULF 2.5 MG/0.5ML(0.5%) NEB SOLN NEB PRN ×2 (02:27→06:38)
[2021-08-05 04:36] LABS: Mean Corpuscular Volume 94.6 fL (80.0-100.0); White Blood Cell 6.2 10^3/uL (4.4-10.8)
[2021-08-05 04:40] LABS: Hematocrit 27.8 % (41.0-53.0); Hemoglobin 9.9 g/dL (13.5-17.5); Mean Corpuscular Hemoglobin 33.6 pg (28.0-32.0); Mean Corpuscular Hgb Conc. 35.5 g/dL (32.0-36.0); Red Blood Cells 2.94 10^6/uL (4.5-5.90); Red Cell Distribution Width 16.2 % (11.8-14.3)
[2021-08-05 05:02] LABS: Basophils % (manual) 0 (0.0-2.0); Blast Cells 0; Metamyelocytes % 0; Monocytes % (manual) 0 (0-12); Promyelocytes % 0; Reactive Lymphocytes 0
[2021-08-05 05:08] LABS: Albumin 1.1 g/dL (3.4-5.0); BUN/Creatinine Ratio 36.9; Calcium 6.1 mg/dL (8.5-10.1); Magnesium 1.6 mg/dL (1.6-2.6)
[2021-08-05 05:11] LABS: Bilirubin, Total 0.6 mg/dL (0.2-1.0); Phosphorus 3.9 mg/dL (2.5-4.90); Total Protein 3.6 g/dL (6.4-8.2)
[2021-08-05] MEDS: PHENYLEPHRINE IV 250 ML IV SCH (05:19)
[2021-08-05] MEDS: MIDAZOLAM DRIP 50 mg/50mL 50 ML IV SCH ×2 (05:20→08:46)
[2021-08-05] MEDS: InsuLIN REG 1unit/0.01ml Soln (100units/ml) SC SCH ×2 (05:36)
[2021-08-05] MEDS: BUDESONIDE (INHALATION) 0.5 MG/2 ML NEB NEB SCH (06:38)
[2021-08-05] MEDS: IPRATROPIUM BROM 0.5 MG/2.5ML INH SOL NEB SCH (06:38)
[2021-08-05 06:59] LABS: Band Neutrophils % (manual) 35; Eosinophils % (manual) 1 (0-7); Lymphocytes % (manual) 7 (10.0-50.0); Myelocytes % 2
[2021-08-05] MEDS ORDERED: NOREPINEPHRINE BITARTRATE 32 MG in SODIUM CHL 0.9% 218 ML IV SCH (07:45)
[2021-08-05] MEDS ORDERED: VASOPRESSIN 50 UNITS in D5W 5% 247.5 ML IV SCH (07:45)
[2021-08-05] MEDS ORDERED: PHENYLEPHRINE IV 250 ML IV SCH (07:45)
[2021-08-05] MEDS ORDERED: PHENYLEPHRINE INJ 40 MG in SODIUM CHL 0.9% 246 ML IV SCH (07:45)
[2021-08-05] MEDS ORDERED: levoFLOXacin 250MG 50 ML IV SCH (10:00)
== END 2021-08-05 13:45 | DRG 207 ==
LOC: ER 10:33 → TELE 14:14 → TELE-EAST 20:43 → TELE-E-ADS 07-06 04:25 → ICU WEST 07-06 16:11
PROVIDERS: ADMIT Internal Medicine; ATTEND Internal Medicine
PROC: XW033E5 Introduction of Remdesivir Anti-infective into Peripheral Vein, Percutaneous Approach, New Technology Group 5 (ICD-10-PCS; 2021-06-20)
PROC: XW033H5 Introduction of Tocilizumab into Peripheral Vein, Percutaneous Approach, New Technology Group 5 (ICD-10-PCS; 2021-06-27)
PROC: 5A1955Z Respiratory Ventilation, Greater than 96 Consecutive Hours (ICD-10-PCS; principal; 2021-07-06)
PROC: 0BH17EZ Insertion of Endotracheal Airway into Trachea, Via Natural or Artificial Opening (ICD-10-PCS; 2021-07-06)
PROC: 05HB33Z Insertion of Infusion Device into Right Basilic Vein, Percutaneous Approach (ICD-10-PCS; 2021-07-06)
PROC: B54MZZA Ultrasonography of Right Upper Extremity Veins, Guidance (ICD-10-PCS; 2021-07-06)
PROC: 30233K1 Transfusion of Nonautologous Frozen Plasma into Peripheral Vein, Percutaneous Approach (ICD-10-PCS; 2021-07-15)
PROC: 30233N1 Transfusion of Nonautologous Red Blood Cells into Peripheral Vein, Percutaneous Approach (ICD-10-PCS; 2021-07-27)
PROC: 30233R1 Transfusion of Nonautologous Platelets into Peripheral Vein, Percutaneous Approach (ICD-10-PCS; 2021-08-03)
DX: U07.1 COVID-19 (principal); J12.82 Pneumonia due to coronavirus disease 2019; J96.01 Acute respiratory failure with hypoxia; J15.6 Pneumonia due to other Gram-negative bacteria; A41.89 Other specified sepsis; R65.21 Severe sepsis with septic shock; N17.0 Acute kidney failure with tubular necrosis; E87.1 Hypo-osmolality and hyponatremia; E87.3 Alkalosis; J93.9 Pneumothorax, unspecified; K92.2 Gastrointestinal hemorrhage, unspecified; Z16.21 Resistance to vancomycin; B37.49 Other urogenital candidiasis; E87.6 Hypokalemia; D64.9 Anemia, unspecified; D69.6 Thrombocytopenia, unspecified; D89.839 Cytokine release syndrome, grade unspecified; I48.91 Unspecified atrial fibrillation; I10 Essential (primary) hypertension; J43.9 Emphysema, unspecified; R73.03 Prediabetes; E86.0 Dehydration; B95.2 Enterococcus as the cause of diseases classified elsewhere
CPT/HCPCS: 36415; 36569; 36600; 71045; 71275; 74018; 76705; 80048; 80053; 80061; 80076; 81001; 82040; 82270; 82306; 82533; 82550; 82728; 82805; 82962; 83036; 83605; 83615; 83735; 83880; 84100; 84132; 84443; 84478; 84484; 85007; 85014; 85018; 85025; 85027; 85379; 85384; 85610; 85730; 86141; 86704; 86706; 86708; 86803; 86850; 86900; 86901; 86920; 87040; 87070; 87077; 87086; 87088; 87186; 87205; 87340; 87426; 87493; 93005; 93306; 93970; 94002; 94003; 94640; 96361; 96374; 97110; 97116; 97163; 97530; C9113; G0378; J0330; J0696; J1100; J1450; J1815; J1956; J2185; J2250; J2704; J3480; J3490; J7060; J7131; P9047